=== PATIENT | female | born 1940 | race Two or more races ===

== ENCOUNTER 2020-04-17 00:25 | Inpatient (IN) | payer MEDICARE, OTHER ==
[~2020-04-17] VITALS: Ht 160 cm; Wt 55.3 kg
--- NOTE | 2020-04-17 00:50 | NUR ---
PT BIB 878 FROM HOME FOR C/O GEN ABD PAIN, EPIGASTRIC PAIN AND N/V X 3-4 HRS. PT AAOX4, VSS, RESPIRATIONS EVEN AND UNLABORED ON RA W/ NAD NOTED. PT CONNECTED TO THE CARTON STAPLER AND POX
[2020-04-17] MEDS ORDERED: HYDROMORPHONE INJ 2 MG/ML DISP.SYRIN IV ONE (01:30)
[2020-04-17] MEDS ORDERED: ONDANSETRON HCL/PF 4 MG/2 ML VIAL IVP ONE (01:30)
[2020-04-17] MEDS ORDERED: IV NS 0.9% 500 ML BAG IV ONE (01:30)
[2020-04-17] MEDS ORDERED: HYDROMORPHONE 1 MG/1 ML DISP.SYRIN ONE (01:33)
[2020-04-17] MEDS ORDERED: ONDANSETRON HCL/PF 4 MG/2 ML VIAL ONE (01:33)
--- NOTE | 2020-04-17 02:05 | NUR ---
PT TAKEN TO RADIOLOGY FOR CT
[2020-04-17 02:09] LABS: BASOPHILS % (AUTO) 0.2 % (0.0-2.0); EOSINOPHILS % (AUTO) 2.9 % (0.0-6.0); HEMATOCRIT 43 % (33-45); HEMOGLOBIN 14.5 g/dL (11.5-14.8); LYMPHOCYTES # (AUTO) 1.6 /CMM (0.8-4.8); LYMPHOCYTES % (AUTO) 18.3 % (20.0-44.0); MEAN CORPUSCULAR HGB CONC 34 g/dl (31.0-36.0); MEAN CORPUSCULAR VOLUME 91 fL (82-100); MONOCYTES # (AUTO) 0.7 /CMM (0.1-1.30); MONOCYTES % (AUTO) 7.9 % (2.0-12.0); NEUTROPHILS # (AUTO) 6.1 /CMM (1.8-8.9); NEUTROPHILS % (AUTO) 70.7 % (43.0-81.0); PLATELET COUNT (AUTO) 178 /CMM (150-450); RED BLOOD CELL COUNT(AUTO) 4.73 MIL/uL (4.0-5.2); WHITE BLOOD COUNT (AUTO) 8.7 K/uL (4.3-11.0)
[2020-04-17 02:22] LABS: ALANINE AMINOTRANSFERASE 29 U/L (12-78); ALBUMIN 3.5 g/dL (3.4-5.0); ALKALINE PHOSPHATASE 100 U/L (46-116); ASPARTATE AMINOTRANSFERASE 208 U/L (15-37); BILIRUBIN,DIRECT 0.4 mg/dL (0.0-0.2); BILIRUBIN,TOTAL 0.8 mg/dL (0.2-1.0); CALCIUM, SERUM 8.5 mg/dL (8.5-10.1); CARBON DIOXIDE 30 mmol/L (21-32); CHLORIDE 103 mmol/L (98-107); CREATININE 0.7 mg/dL (0.6-1.3); GLUCOSE 145 mg/dL (74-106); LIPASE 1076 U/L (73-393); POTASSIUM 3.8 mmol/L (3.5-5.1); SODIUM SERUM 141 mmol/L (136-145); TOTAL PROTEIN, SERUM 6.7 g/dL (6.4-8.2); UREA NITROGEN, BLOOD 17 mg/dL (7-18)
--- NOTE | 2020-04-17 02:30 | NUR ---
PT BACK FROM RADIOLOGY
[2020-04-17] MEDS ORDERED: methylPREDNISolone SOD SUCC 125 MG/2ML VIAL ONE (02:58)
[2020-04-17] MEDS ORDERED: diphenhydrAMINE HCL 50 MG/ML VIAL ONE (02:58)
[2020-04-17] MEDS ORDERED: FAMOTIDINE/PF INJ 20 MG/2 ML VIAL IV ONE ×2 (02:59→03:00)
[2020-04-17] MEDS ORDERED: diphenhydrAMINE HCL 50 MG/ML VIAL IV ONE (03:00)
[2020-04-17] MEDS ORDERED: methylPREDNISolone SOD SUCC 125 MG/2ML VIAL IV ONE (03:00)
--- NOTE | 2020-04-17 03:51 | NUR ---
WAS NOTIFIED PT WILL BE GOING TO 327-2 BY NURSING SPECIAL MAKEUP FX ARTIST INSTRUCTOR.
--- NOTE | 2020-04-17 04:07 | NUR ---
REPORT GIVEN TO AVI ON THIRD FLOOR
--- NOTE | 2020-04-17 04:11 | NUR ---
PT TRANSFERRED TO ROOM W/ EMT
--- NOTE | 2020-04-17 04:13 | NUR ---
PT DOES NOT RECALL THE LIST OF HER HOME MEDS
--- NOTE | 2020-04-17 05:03 | NUR ---
MS/TELE/RN RECEIVED PATIENT AT AROUND 0425 FROM [facility] PATIENT WAS AWAKE ALERT, ORIENTED X 4 BUT FORGETFUL, NO C/O PAIN, NO SIGNS OF DISTRESS NOTED, MADE COMFORTABLE IN BED, ADMISSION DONE PER PROTOCOL, PHYSICAL ASSESSMENT DONE, PATIENT CONSENTED TO TAKING PHOTOS ON GENERALIZED BODY RASHES, FALL PRECAUTIONS PER PROTOCOL IMPLEMENTED FOR SAFETY, TAUGHT THE USE OF CALL LIGHT, VERBALIZED UNDERSTANDING, AND PLACED IT AT BEDSIDE WITHIN REACH. NOTIFIED DR. CARSON OF ADMISSION. WILL MONITOR.
[2020-04-17] MEDS ORDERED: MORPHINE SULFATE INJ 2 MG/ML DISP.SYRIN IV PRN (05:30)
[2020-04-17] MEDS ORDERED: MAGNESIUM HYDROXIDE 30 ML UDC PO PRN (05:30)
[2020-04-17] MEDS ORDERED: MAG HYDROX/AL HYDROX/SIMETH 30 ML UDC PO PRN (05:30)
[2020-04-17] MEDS ORDERED: ZOLPIDEM TARTRATE 5 MG TABLET PO PRN (05:30)
[2020-04-17] MEDS ORDERED: Z GUARD REMEDY 2 OZ OINT TP PRN (05:30)
[2020-04-17] MEDS ORDERED: ACETAMINOPHEN 325 MG TABLET PO PRN (05:30)
[2020-04-17] MEDS ORDERED: HYDROCODONE/APAP 5/325MG TABLET PO PRN (05:30)
[2020-04-17] MEDS ORDERED: ONDANSETRON HCL/PF 4 MG/2 ML VIAL IVP PRN (05:30)
[2020-04-17] MEDS: IV D5/0.45 NACL 1,000 ML IV PRN ×2 (05:47→16:08)
--- NOTE | 2020-04-17 06:52 | NUR ---
MS/TELE/RN PATIENT IS AWAKE, ALERT, ORIENTED, COMFORTABLE, NO CHANGE IN CONDITION, ALL NEEDS ATTENDED AT THIS TIME, WILL CONTINUE TO MONITOR.
--- NOTE | 2020-04-17 07:26 | NUR ---
MS RN OPENING NOTES RECEIVED PATIENT AWAKE IN BED IN NO ACUTE SIGNS OF DISTRESS. A/O X3. ABLE TO MAKE NEEDS KNOWN, DENIES PAIN OR ANY DISCOMFORTS AT THIS TIME. PT IS FORGETFUL. ON 02 VIA N/C @ 2LPM, BREATHING EVEN AND UNLABORED. IV ACCESS ON RIGHT WRIST G#20 INTACT AND PATENT WITH IVF OF D5 1/2 NS @125 ML/HR INFUSING WELL. SAFETY MEASURES IN PLACE: BED IN LOW/LOCKED POSITION, SIDE-RAILS UPX2, BED ALARM ON AND CALL LIGHT IN REACH. WILL CONTINUE TO MONITOR PT ACCORDINGLY
[2020-04-17 08:00] VITALS: BP 127/93
[2020-04-17] MEDS ORDERED: MEMA7CAP2 PO (08:51)
[2020-04-17] MEDS ORDERED: HYDR-3642 PO (08:51)
[2020-04-17] MEDS ORDERED: CARB1TAB21 PO (08:51)
[2020-04-17] MEDS ORDERED: FLUT1BLS INH (08:51)
[2020-04-17] MEDS ORDERED: CETI10TA14 PO (08:51)
[2020-04-17] MEDS ORDERED: ALBU18HF2 IH (08:51)
[2020-04-17] MEDS ORDERED: NITR1PAT67 TD (08:53)
[2020-04-17] MEDS: PANTOPRAZOLE 40 MG VIAL IV SCH (09:00)
[2020-04-17] MEDS ORDERED: ALBUTEROL SULFATE INH 18 GM HFA.AER.AD IH PRN (11:30)
[2020-04-17] MEDS ORDERED: cetrizine 10 MG TABLET PO PRN (11:30)
--- NOTE | 2020-04-17 11:57 | NUR ---
RN NOTES PT SEEN AND EVALUATED BY DR RAMSEY. MED RECON VERIFIED AND ORDERED PT TO START ON CLEAR LIQUIDS DIET. WILL CONTINUE TO MONITOR.
[2020-04-17] MEDS ORDERED: ALBUTEROL FS 2.5 MG/3 ML VIAL.NEB NEB PRN (12:00)
[2020-04-17] MEDS: CARBIDOPA/LEVODOPA 25/100 MG 1 UDTAB PO SCH ×2 (12:16→16:20)
[2020-04-17] MEDS: DOCUSATE SODIUM 100 MG CAPSULE PO SCH ×2 (13:02→16:20)
[2020-04-17 16:00] VITALS: BP 144/93
[2020-04-17] MEDS: MEMANTINE HCL 5 MG TABLET PO SCH (16:20)
--- NOTE | 2020-04-17 18:43 | NUR ---
MS RN CLOSING NOTES PATIENT IN BED AWAKE AND WATCHING TV AT THIS TIME. HOB KEPT ELEVATED. A/O X3. ABLE TO MAKE NEEDS KNOWN, FORGETFUL. ON 02 VIA N/C @ 2LPM, TOLERATING WELL WITH NO SOB NOTED THROUGHOUT THE DAY. IV ACCESS ON RIGHT WRIST G#20 INTACT AND PATENT, IVF OF D5 1/2 NS @125 ML/HR INFUSING WELL, NO S/S OF INFILTRATIONS AT SITE NOTED. ALL NEEDS AND CARE ATTENDED WELL. SAFETY MEASURES KEPT IN PLACE: BED IN LOWEST LOCKED POSITION, SIDE-RAILS UPX2, BED ALARM ON AND CALL LIGHT IN REACH. WILL ENDORSE TO SENIOR LINUX SYSTEMS ENGINEER NURSE FOR JAY.
--- NOTE | 2020-04-17 19:40 | NUR ---
RN OPENING NOTES PATIENT RECEIVED RESTING IN BED A/O X 3. STABLE ON RA WITH BREATHING EVEN AND UNLABORED, NO SOB NOTED. NO SIGNS OF ACUTE DISTRESS. NO COMPLAINTS OF PAIN OR DISCOMFORT AT THE MOMENE.T IV LOCATED ON R WRIST #20 RUNNING D51/2 NS @ 75 ML/HR. SAFETY PRECAUTIONS IN PLACE WITH BED IN LOWEST POSITION, CALL LIGHT WITHIN REACH, BREAKS ON, SIDE RAILS UP. WILL CONTINUE TO MONITOR THROUGHOUT THE NIGHT.
[2020-04-17 20:32] VITALS: BP 119/71
[2020-04-17] MEDS ORDERED: hydrOXYzine 10 MG TABLET PO SCH (22:00)
--- NOTE | 2020-04-17 23:35 | NUR ---
RN NOTES PATIENT NOT ABLE TO INTAKE SWEETS- GETS RASHES ALL OVER BODY. NOTIFIED BY DAUGHTER AND PATIENT.
--- NOTE | 2020-04-18 01:40 | NUR ---
RN NOTES PATIENT COMPLAINING OF SOB. O2SAT AT 94%. RT AT BEDSIDE GIVING BREATHING TREATMENT PRN. WILL CONTINUE TO MONITOR.
[2020-04-18 06:15] LABS: BASOPHILS % (AUTO) 0.2 % (0.0-2.0); EOSINOPHILS % (AUTO) 3.1 % (0.0-6.0); HEMATOCRIT 39 % (33-45); HEMOGLOBIN 13.5 g/dL (11.5-14.8); LYMPHOCYTES # (AUTO) 1.6 /CMM (0.8-4.8); LYMPHOCYTES % (AUTO) 21.1 % (20.0-44.0); MEAN CORPUSCULAR HGB CONC 34 g/dl (31.0-36.0); MEAN CORPUSCULAR VOLUME 90 fL (82-100); MONOCYTES # (AUTO) 0.5 /CMM (0.1-1.30); NEUTROPHILS # (AUTO) 5.4 /CMM (1.8-8.9); NEUTROPHILS % (AUTO) 68.6 % (43.0-81.0); PLATELET COUNT (AUTO) 154 /CMM (150-450); RED BLOOD CELL COUNT(AUTO) 4.36 MIL/uL (4.0-5.2); WHITE BLOOD COUNT (AUTO) 7.8 K/uL (4.3-11.0)
[2020-04-18 06:45] LABS: ALBUMIN 3.1 g/dL (3.4-5.0); BILIRUBIN,TOTAL 0.5 mg/dL (0.2-1.0); CALCIUM, SERUM 7.2 mg/dL (8.5-10.1); CREATININE 0.7 mg/dL (0.6-1.3); PHOSPHORUS 2.9 mg/dL (2.5-4.9); POTASSIUM 3.5 mmol/L (3.5-5.1); TOTAL PROTEIN, SERUM 5.9 g/dL (6.4-8.2)
--- NOTE | 2020-04-18 07:31 | NUR ---
MS RN OPENING NOTES BEDSIDE ENDORESEMENT DONE. RECEIVED PATIENT SITTING IN BED, AWAKE AND VERBALLY RESPONSIVE, NO ACUTE DISTRESS. A/O X3 BUT MAY NEED REORIENTATION AND REDIRECTION. ABLE TO MAKE NEEDS KNOWN. SHE DENIES PAIN NOR DISCOMFORT AT THIS TIME. ON 02 VIA N/C @ 2LPM, SATURATING AT 97%, BREATHING EVEN AND UNLABORED. IV ACCESS ON RIGHT WRIST G#20 INTACT AND PATENT, WITH IVF OF D5 1/2 NS @125 ML/HR INFUSING WELL. SAFETY MEASURES PLACED: BED IN LOW/LOCKED POSITION, SIDE-RAILS UP X2, BED ALARM ON AND CALL LIGHT IN REACH. INSTRUCTION PROVIDED TO PATIENT TO USE CALL LIGHT BUTTON FOR STAFF ASSISTANCE W/ ADLs. WILL MONITOR ACCORDINGLY.
--- NOTE | 2020-04-18 07:33 | NUR ---
RN CLOSING NOTES PATIENT RESTING IN BED A/O X 3. STABLE ON RA WITH BREATHING EVEN AND UNLABORED, NO SOB NOTED. NO SIGNS OF ACUTE DISTRESS. NO COMPLAINTS OF PAIN OR DISCOMFORT AT THE MOMENT. IV LOCATED ON R WRIST PATIENT DOES NOT WANT IVF AT THE MOMENT. SAFETY PRECAUTIONS IN PLACE WITH BED IN LOWEST POSITION, CALL LIGHT WITHIN REACH, BREAKS ON, SIDE RAILS UP. ALL NEEDS ATTENDED TO. WILL ENDORSE TO ONCOMING SHIFT ABOUT JAY.
[2020-04-18 07:43] LABS: THYROID STIMULATING HORMONE 1.282 uIU/mL (0.358-3.74)
[2020-04-18 08:00] VITALS: BP 122/93
[2020-04-18] MEDS: MEMANTINE HCL 5 MG TABLET PO SCH ×2 (08:24→16:05)
[2020-04-18] MEDS: PANTOPRAZOLE 40 MG VIAL IV SCH (08:24)
[2020-04-18] MEDS: DOCUSATE SODIUM 100 MG CAPSULE PO SCH ×3 (08:24→16:05)
[2020-04-18] MEDS: CARBIDOPA/LEVODOPA 25/100 MG 1 UDTAB PO SCH ×3 (08:24→16:06)
[2020-04-18] MEDS ORDERED: FLUTICASONE/VILANTEROL 1 EACH BLST.W.DEV IH SCH (09:00)
--- NOTE | 2020-04-18 11:26 | NUR ---
RN NOTES PT SEEN BY DR RAMSEY WITH ORDER TO ADVANCE DIET TO REGULAR NCS FOR LUNCH FROM CLEAR LIQUIDS DIET. WILL CONTINUE TO MONITOR.
[2020-04-18] MEDS: IV D5/0.45 NACL 1,000 ML IV PRN (15:07)
[2020-04-18 16:00] VITALS: BP 126/80
[2020-04-18] MEDS ORDERED: PANT40TA2 PO (16:06)
--- NOTE | 2020-04-18 16:54 | NUR ---
RN DISCHARGED NOTES PT DISCHARGED HOME IN STABLE CONDITION. A/O X2-3. FORGETFUL BUT ABLE TO MAKE NEEDS KNOWN. V/S TAKEN, STABLE AND RECORDED. ALL BELONGINGS ACCOUNTED FOR AND PT SIGNED FORM. PHOTOS OF SKIN ISSUES TAKEN AND FILED IN HER CHART. IV ACCESS REMOVED WITH NO BLEEDING NOTED. NAME ARMBAND REMOVED. PT LEFT UNIT AMBULATORY AT 1645 ACCOMPANIED BY ME. PT'S WAITING IN THE [facility] AND HEALTH TEACHINGS/DISCHARGED INSTRUCTIONS WAS GIVEN TO HIM AND PT, BOTH VERBALIZED UNDERSTANDING. [employer] BUSINESS CARD OF ALTHEA GREENE HANDED TO PT'S . MD AND CHARGE NURSE AWARE OF DISCHARGE.
== END 2020-04-18 16:40 | disposition home or self-care (01) | DRG 440 ==
LOC: ER 00:26 → MED 03:51
PROVIDERS: ADMIT Nurse Practitioner Acute Care; ATTEND Nurse Practitioner Acute Care
DX: K85.90 Acute pancreatitis without necrosis or infection, unspecified (principal); K52.9 Noninfective gastroenteritis and colitis, unspecified; K59.00 Constipation, unspecified; K20.9 Esophagitis, unspecified; G30.9 Alzheimer's disease, unspecified; F02.80 Dementia in other diseases classified elsewhere, unspecified severity, without behavioral disturbance, psychotic disturbance, mood disturbance, and anxiety; K86.1 Other chronic pancreatitis; R21 Rash and other nonspecific skin eruption; J45.909 Unspecified asthma, uncomplicated
CPT/HCPCS: 36415; 71045-TC; 80048-TC; 80053-TC; 80061-TC; 80076-TC; 83690-TC; 83735-TC; 84100-TC; 84443-TC; 84484-TC; 85025-TC; 85730-TC; 87081-TC; C9113; C9803-CS; G0378; J1170; J1200; J2405; J2930; J3490; J7040; Q0177

== ENCOUNTER 2020-04-20 08:01 | Emergency (ER) | payer MEDICARE, OTHER ==
[~2020-04-20] VITALS: Ht 160 cm; Wt 57.6 kg
[~2020-04-20 08:01] MED LIST: ALBU18HF2 IH; CARB1TAB21 PO; CETI10TA14 PO; FLUT1BLS INH; HYDR-3642 PO; MEMA7CAP2 PO; NITR1PAT67 TD; PANT40TA2 PO
--- NOTE | 2020-04-20 08:04 | NUR ---
DR PICKARD AT BEDSIDE
--- NOTE | 2020-04-20 08:04 | NUR ---
[id number] HOME, FAMILY CALLED PT C/O EPIGASTRIC AREA PAIN SINCE THIS AM. TO ER BED 10, HOOKED TO MONITOR, CHANGED TO HOSP GOWN, WARM BLABKET PROVIDED, PATIENT AAO x 3, BREATHING EVEN AND UNLABORED. AWAITING MD HERNANDEZ
--- NOTE | 2020-04-20 08:10 | NUR ---
DISC RECORDIST AT BEDSIDE
[2020-04-20] MEDS ORDERED: LIDOCAINE VISCOUS 2% UD 15 ML UDC MM ONE (08:30)
[2020-04-20] MEDS ORDERED: ONDANSETRON HCL/PF 4 MG/2 ML VIAL IVP ONE (08:30)
[2020-04-20] MEDS ORDERED: MAG HYDROX/AL HYDROX/SIMETH 30 ML UDC PO ONE (08:30)
[2020-04-20] MEDS ORDERED: FAMOTIDINE/PF INJ 20 MG/2 ML VIAL IV ONE ×2 (08:30→08:48)
[2020-04-20] MEDS ORDERED: IV NS 0.9% 500 ML BAG IV ONE (08:30)
[2020-04-20 08:39] LABS: BASOPHILS % (AUTO) 0.4 % (0.0-2.0); EOSINOPHILS % (AUTO) 11.4 % (0.0-6.0); HEMATOCRIT 40 % (33-45); HEMOGLOBIN 13.7 g/dL (11.5-14.8); LYMPHOCYTES # (AUTO) 1.6 /CMM (0.8-4.8); LYMPHOCYTES % (AUTO) 28.8 % (20.0-44.0); MEAN CORPUSCULAR HGB CONC 34 g/dl (31.0-36.0); MEAN CORPUSCULAR VOLUME 90 fL (82-100); MONOCYTES # (AUTO) 0.4 /CMM (0.1-1.30); MONOCYTES % (AUTO) 8.1 % (2.0-12.0); NEUTROPHILS # (AUTO) 2.8 /CMM (1.8-8.9); NEUTROPHILS % (AUTO) 51.3 % (43.0-81.0); PLATELET COUNT (AUTO) 164 /CMM (150-450); RED BLOOD CELL COUNT(AUTO) 4.47 MIL/uL (4.0-5.2); WHITE BLOOD COUNT (AUTO) 5.5 K/uL (4.3-11.0)
[2020-04-20] MEDS ORDERED: ONDANSETRON HCL/PF 4 MG/2 ML VIAL ONE (08:47)
[2020-04-20] MEDS ORDERED: MAG HYDROX/AL HYDROX/SIMETH 30 ML UDC ONE (08:47)
[2020-04-20] MEDS ORDERED: LIDOCAINE VISCOUS 2% UD 15 ML UDC ONE (08:47)
[2020-04-20 08:49] LABS: CALCIUM, SERUM 8.3 mg/dL (8.5-10.1); CREATININE 0.6 mg/dL (0.6-1.3); POTASSIUM 3.6 mmol/L (3.5-5.1)
[2020-04-20 08:56] LABS: ALBUMIN 3.5 g/dL (3.4-5.0); BILIRUBIN,DIRECT 0.1 mg/dL (0.0-0.2); BILIRUBIN,TOTAL 0.6 mg/dL (0.2-1.0); TOTAL PROTEIN, SERUM 6.5 g/dL (6.4-8.2)
--- NOTE | 2020-04-20 08:58 | NUR ---
URINE SAMPLE COLLECTED AND SENT TO LAB
--- NOTE | 2020-04-20 10:49 | NUR ---
IV removed. Catheter intact and site benign. Pressure and 4x4 applied to site. No bleeding noted.
--- NOTE | 2020-04-20 11:01 | NUR ---
PATIENT AWAITING FAMILY TO PICK HER UP. NO ETA PROVIDED.
--- NOTE | 2020-04-20 11:03 | NUR ---
PER DAUGHTER, ETA OF [facility] ABOUT 15-20MIN
[2020-04-20 11:09] LABS: APPEARANCE,URINE Clear (CLEAR); BILIRUBIN,URINE Negative (NEGATIVE); BLOOD, URINE Negative Ery/uL (NEGATIVE); COLOR,URINE Yellow (YELLOW); KETONES,URINE Negative (NEGATIVE); LEUKOCYTE ESTERASE ,URINE Negative (NEGATIVE); NITRITE, URINE Negative (NEGATIVE); PH,URINE 7.5 (5.0-8.0); PROTEIN,URINE Negative (NEGATIVE); UGLUCOSE Negative (NEGATIVE); UROBILINOGEN,URINE 0.2 EU/dL (0.2)
--- NOTE | 2020-04-20 11:14 | NUR ---
Patient discharged to home with in stable condition. Written and verbal after care instructions given. Patient and family verbalizes understanding of instruction. Assisted to waiting room where is waiting.
[2020-04-20 11:16] VITALS: BP 146/87
== END 2020-04-20 11:16 | disposition home or self-care (01) ==
LOC: ER 08:03
DX: R10.13 Epigastric pain (principal); R10.12 Left upper quadrant pain; R11.0 Nausea; G30.9 Alzheimer's disease, unspecified; G20 Parkinson's disease; Z90.49 Acquired absence of other specified parts of digestive tract; Z88.6 Allergy status to analgesic agent; Z79.899 Other long term (current) drug therapy
CPT/HCPCS: 36415; 71045; 80048; 80076; 81001; 83690; 85025; 93005; 96374; 96375; 99285; J2405; J3490; J7040; 81000-TC

== ENCOUNTER 2020-05-28 10:13 | Emergency (ER) | payer MEDICARE, OTHER ==
[~2020-05-28] VITALS: Ht 160 cm; Wt 51.7 kg
--- NOTE | 2020-05-28 10:20 | NUR ---
pt BIB daughter from home. s/p fall. noted with right eyebrow open wound. wound care provided. all needs attended. awaiting for MD baumann
--- NOTE | 2020-05-28 10:25 | NUR ---
MD at bedside and evaluating pt
[2020-05-28] MEDS ORDERED: LIDOCAINE HCL/PF 1% 30 ML VIAL TP ONE (10:30)
[2020-05-28] MEDS ORDERED: ACETAMINOPHEN ES 500 MG TABLET PO ONE (10:30)
[2020-05-28] MEDS ORDERED: LIDOCAINE /MPF 1% VIAL 5 ML VIAL ONE (10:34)
[2020-05-28] MEDS ORDERED: ACETAMINOPHEN ES 500 MG TABLET ONE (10:34)
--- NOTE | 2020-05-28 10:47 | NUR ---
pt out for CT
--- NOTE | 2020-05-28 11:43 | NUR ---
AT BEDSIDE. SUTURE ONGOING
[2020-05-28] MEDS ORDERED: TDAP [DIPH/PERTUSSIS/TET] 0.5 ML VIAL IM ONE ×2 (12:11→12:30)
[2020-05-28 12:54] VITALS: BP 104/87
== END 2020-05-28 12:55 | disposition home or self-care (01) ==
LOC: ER 10:17
DX: S01.111A Laceration without foreign body of right eyelid and periocular area, initial encounter (principal); S80.211A Abrasion, right knee, initial encounter; G30.9 Alzheimer's disease, unspecified; G20 Parkinson's disease; F02.80 Dementia in other diseases classified elsewhere, unspecified severity, without behavioral disturbance, psychotic disturbance, mood disturbance, and anxiety; J45.909 Unspecified asthma, uncomplicated; Z90.49 Acquired absence of other specified parts of digestive tract; Z88.6 Allergy status to analgesic agent; Z98.890 Other specified postprocedural states; W01.0XXA Fall on same level from slipping, tripping and stumbling without subsequent striking against object, initial encounter; Y93.01 Activity, walking, marching and hiking; Y92.89 Other specified places as the place of occurrence of the external cause; Y99.8 Other external cause status
CPT/HCPCS: 12011; 70450; 72125; 90471; 90715; 99285; A6403; J3490 ×2

== ENCOUNTER 2020-06-04 10:53 | Emergency (ER) | payer MEDICARE, OTHER ==
[~2020-06-04] VITALS: Ht 160 cm; Wt 54.4 kg
[2020-06-04 11:05] VITALS: BP 106/71
--- NOTE | 2020-06-04 11:17 | NUR ---
3 SUTURES TAKEN OUT. TOLERATED PROCEDURE WELL. D/C IN STABLE CONDITION.
== END 2020-06-04 11:18 | disposition home or self-care (01) ==
LOC: ER 11:01
DX: S01.81XD Laceration without foreign body of other part of head, subsequent encounter (principal); G30.9 Alzheimer's disease, unspecified; G20 Parkinson's disease; F02.80 Dementia in other diseases classified elsewhere, unspecified severity, without behavioral disturbance, psychotic disturbance, mood disturbance, and anxiety; J45.909 Unspecified asthma, uncomplicated; Z90.49 Acquired absence of other specified parts of digestive tract; Z88.6 Allergy status to analgesic agent; Z79.899 Other long term (current) drug therapy; X58.XXXD Exposure to other specified factors, subsequent encounter

== ENCOUNTER 2020-09-13 06:15 | Inpatient (IN) | payer MEDICARE, OTHER ==
[~2020-09-13] VITALS: Ht 160 cm; Wt 53.7 kg
--- NOTE | 2020-09-13 06:20 | NUR ---
PT BIBRA FROM HOME C/O EPIGASTRIC PAIN X 3 DAYS. PT DENIES N/V. PT AAOX4, VSS, RESPIRATIONS EVEN AND UNLABORED ON RA W/ NAD NOTED. PT CONNECTED TO THE MONITOR AND POX
[2020-09-13] MEDS ORDERED: LIDOCAINE VISCOUS 2% UD 15 ML UDC ONE (06:29)
[2020-09-13] MEDS ORDERED: FAMOTIDINE/PF INJ 20 MG/2 ML VIAL IV ONE ×2 (06:29→06:30)
[2020-09-13] MEDS ORDERED: MAG HYDROX/AL HYDROX/SIMETH 30 ML UDC ONE (06:29)
[2020-09-13] MEDS ORDERED: IV NS 0.9% 500 ML BAG IV ONE (06:30)
[2020-09-13] MEDS ORDERED: MAG HYDROX/AL HYDROX/SIMETH 30 ML UDC PO ONE (06:30)
[2020-09-13] MEDS ORDERED: LIDOCAINE VISCOUS 2% UD 15 ML UDC MM ONE (06:30)
--- NOTE | 2020-09-13 06:48 | NUR ---
BLOOD COLLECTED AND SENT TO LAB
--- NOTE | 2020-09-13 06:57 | NUR ---
PT UNABLE TO PROVIDE URINE SAMPLE AT THIS TIME. MD JOSEPH
[2020-09-13 07:08] LABS: BASOPHILS % (AUTO) 0.3 % (0.0-2.0); EOSINOPHILS % (AUTO) 11.1 % (0.0-6.0); HEMATOCRIT 37 % (33-45); HEMOGLOBIN 12.6 g/dL (11.5-14.8); LYMPHOCYTES # (AUTO) 1.5 /CMM (0.8-4.8); LYMPHOCYTES % (AUTO) 32.4 % (20.0-44.0); MEAN CORPUSCULAR HGB CONC 34 g/dl (31.0-36.0); MEAN CORPUSCULAR VOLUME 87 fL (82-100); MONOCYTES # (AUTO) 0.4 /CMM (0.1-1.30); NEUTROPHILS # (AUTO) 2.3 /CMM (1.8-8.9); NEUTROPHILS % (AUTO) 48.2 % (43.0-81.0); PLATELET COUNT (AUTO) 128 /CMM (150-450); RED BLOOD CELL COUNT(AUTO) 4.27 MIL/uL (4.0-5.2); WHITE BLOOD COUNT (AUTO) 4.8 K/uL (4.3-11.0)
--- NOTE | 2020-09-13 07:10 | NUR ---
REPORT GIVEN TO TIANNA HARDWICK FOR JAY
[2020-09-13 07:30] LABS: ALANINE AMINOTRANSFERASE 34 U/L (12-78); ALBUMIN 2.9 g/dL (3.4-5.0); ALKALINE PHOSPHATASE 67 U/L (46-116); ASPARTATE AMINOTRANSFERASE 70 U/L (15-37); BILIRUBIN,DIRECT 0.2 mg/dL (0.0-0.2); BILIRUBIN,TOTAL 0.6 mg/dL (0.2-1.0); CALCIUM, SERUM 8.2 mg/dL (8.5-10.1); CARBON DIOXIDE 28 mmol/L (21-32); CHLORIDE 106 mmol/L (98-107); CREATININE 0.5 mg/dL (0.6-1.3); GLUCOSE 100 mg/dL (74-106); LIPASE 1006 U/L (73-393); POTASSIUM 3.7 mmol/L (3.5-5.1); SODIUM SERUM 142 mmol/L (136-145); TOTAL PROTEIN, SERUM 5.8 g/dL (6.4-8.2); UREA NITROGEN, BLOOD 21 mg/dL (7-18)
[2020-09-13] MEDS ORDERED: ONDANSETRON HCL/PF 4 MG/2 ML VIAL IVP ONE (08:00)
[2020-09-13] MEDS ORDERED: MORPHINE SULFATE INJ 2 MG/ML DISP.SYRIN IV ONE (08:00)
[2020-09-13] MEDS ORDERED: MORPHINE SULFATE INJ 4 MG/ML DISP.SYRIN ONE (08:02)
[2020-09-13] MEDS ORDERED: ONDANSETRON HCL/PF 4 MG/2 ML VIAL ONE (08:02)
--- NOTE | 2020-09-13 08:58 | NUR ---
COVID SWAB SENT.
[2020-09-13] MEDS ORDERED: PRIM50TA27 PO (09:10)
[2020-09-13] MEDS ORDERED: ATOR10TA PO (09:10)
[2020-09-13] MEDS ORDERED: diphenhydrAMINE HCL 50 MG/ML VIAL ONE (09:34)
--- NOTE | 2020-09-13 09:37 | NUR ---
MD TO MD IN PROGRESS.
[2020-09-13] MEDS ORDERED: diphenhydrAMINE HCL 50 MG/ML VIAL IV ONE (10:00)
--- NOTE | 2020-09-13 10:12 | NUR ---
CALLED NURSING SUP FOR BED.
[2020-09-13] MEDS ORDERED: MORPHINE SULFATE INJ 2 MG/ML DISP.SYRIN IV PRN (10:30)
[2020-09-13] MEDS ORDERED: MAGNESIUM HYDROXIDE 30 ML UDC PO PRN (10:30)
[2020-09-13] MEDS ORDERED: MAG HYDROX/AL HYDROX/SIMETH 30 ML UDC PO PRN (10:30)
[2020-09-13] MEDS ORDERED: ACETAMINOPHEN 325 MG TABLET PO PRN (10:30)
[2020-09-13] MEDS ORDERED: PANTOPRAZOLE 40 MG VIAL IV SCH (10:30)
[2020-09-13] MEDS ORDERED: IV NS 0.9% 1,000 ML IV PRN (10:30)
[2020-09-13] MEDS ORDERED: Z GUARD REMEDY 2 OZ OINT TP PRN (10:30)
[2020-09-13] MEDS ORDERED: TEMAZEPAM 15 MG CAPSULE PO PRN (10:30)
[2020-09-13] MEDS ORDERED: ONDANSETRON HCL/PF 4 MG/2 ML VIAL IVP PRN (10:30)
--- NOTE | 2020-09-13 11:10 | NUR ---
BED 328-1
[2020-09-13 12:15] VITALS: BP 119/79
--- NOTE | 2020-09-13 12:16 | NUR ---
PATIENT TRANSFERRED TOR OOM 328-1 VIA ACLS PROTOCOL. NO DSITRESS NOTED. GAVE REPORT TO LUIS ENRIQUE WYNN FOR JAY.
[2020-09-13] MEDS: PANTOPRAZOLE 40 MG TABLET.DR PO SCH (12:23)
--- NOTE | 2020-09-13 13:30 | NUR ---
RN ADMITTING NOTES RECEIVED REPORT FROM April HARDWICK VIA TELEPHONE. PATIENT ADMITTED TO UNIT VIA GURNEY AT 1210 ACCOMPANIED BY 2 E.R. TRANSPORTER STAFF. PT IS A/O X3. ABLE TO MAKE NEEDS KNOWN, DENIES PAIN OR ANY DISCOMFORTS AT TIME. ORIENTED TO STAFF AND ROOM. PT WITH ADMITTING DX OF ACUTE PANCREATITIS. ON ROOM AIR, BREATHING EVEN AND UNLABORED WITH NO SOB NOTED. SKIN IS INTACT AND NOTED WITH IV ACCESS ON RIGHT HAND G#20, IVF OF NS @ 75ML/HR STARTED. SAFETY MEASURES INITIATED: BED IS LOCKED AND IN LOWEST POSITION, SIDE RAILS UP X 2, BED ALARM ON AND CALL LIGHT IS WITHIN REACH. WILL CONTINUE TO MONITOR PT ACCORDINGLY..
[2020-09-13] MEDS ORDERED: hydrOXYzine 10 MG TABLET PO PRN (15:30)
[2020-09-13] MEDS ORDERED: ALBUTEROL SULFATE INH 18 GM HFA.AER.AD IH PRN (15:30)
[2020-09-13] MEDS: CARBIDOPA/LEVODOPA 25/100 MG 1 UDTAB PO SCH (16:46)
[2020-09-13] MEDS ORDERED: FLUTICASONE/VILANTEROL 1 EACH BLST.W.DEV IH SCH (17:00)
--- NOTE | 2020-09-13 17:34 | NUR ---
RN NOTES PT VOMITED UNDIGESTED JELLO, PRN ZOFRAN 4MG/2ML IVP ADMINISTERED AT 1731. WILL CONTINUE TO MONITOR AND REASSESS PT.
--- NOTE | 2020-09-13 18:44 | NUR ---
MS RN CLOSING NOTES PT IN BED AWAKE AND WATCHING TV AT THIS TIME. A/O X3. ABLE TO MAKE NEEDS KNOWN. ON ROOM AIR, TOLERATING WELL WITH NO SOB NOTED. IV ACCESS ON RIGHT HAND G#20 INTACT WITH IVF OF NS @ 75ML/HR INFUSING WELL. ALL NEEDS AND CARE ATTENDED WELL. SAFETY MEASURES MAINTAINED: BED IS LOCKED AND IN LOWEST POSITION, SIDE RAILS UP X 2, BED ALARM ON AND CALL LIGHT IS WITHIN REACH. WILL ENDORSE TO CAMP DIRECTOR NURSE FOR JAY.
[2020-09-13 21:35] VITALS: BP 151/91
[2020-09-13] MEDS ORDERED: ATORVASTATIN 10 MG TABLET PO SCH (22:00)
[2020-09-14 06:43] LABS: BASOPHILS % (AUTO) 0.2 % (0.0-2.0); EOSINOPHILS % (AUTO) 3.9 % (0.0-6.0); HEMATOCRIT 41 % (33-45); LYMPHOCYTES # (AUTO) 1.3 /CMM (0.8-4.8); LYMPHOCYTES % (AUTO) 24.3 % (20.0-44.0); MEAN CORPUSCULAR HGB CONC 34 g/dl (31.0-36.0); MEAN CORPUSCULAR VOLUME 88 fL (82-100); MONOCYTES # (AUTO) 0.4 /CMM (0.1-1.30); MONOCYTES % (AUTO) 6.9 % (2.0-12.0); NEUTROPHILS # (AUTO) 3.6 /CMM (1.8-8.9); NEUTROPHILS % (AUTO) 64.7 % (43.0-81.0); PLATELET COUNT (AUTO) 139 /CMM (150-450); RED BLOOD CELL COUNT(AUTO) 4.69 MIL/uL (4.0-5.2); WHITE BLOOD COUNT (AUTO) 5.5 K/uL (4.3-11.0)
--- NOTE | 2020-09-14 07:00 | NUR ---
RN NOTES AWAKE, DNIES P[AIN, NO SOB, MORNING CARE RENDERED,PT. NEEDS ATTENDED
[2020-09-14 07:01] LABS: CALCIUM, SERUM 8.2 mg/dL (8.5-10.1); CREATININE 0.7 mg/dL (0.6-1.3); MAGNESIUM 1.9 mg/dL (1.8-2.4); PHOSPHORUS 4.1 mg/dL (2.5-4.9); POTASSIUM 3.9 mmol/L (3.5-5.1)
--- NOTE | 2020-09-14 07:30 | NUR ---
MS/RN Opening note Patient received from shift superintendent. A/O X3, vital signs stable, no fevers noted. Denies any nausea, no vomiting this morning, able to tolerate clear liquid diet. IV fluids infusing at 75ml/hr via right hand 20 gauge, no signs of infiltration seen. Safety measures in place, bed in low setting, side rails X3 in upright position. Call light within reach, will continue to monitor and ensure safety.
[2020-09-14 08:00] VITALS: BP 118/70
[2020-09-14 08:05] LABS: THYROID STIMULATING HORMONE 0.525 uIU/mL (0.358-3.74)
[2020-09-14] MEDS ORDERED: PRIMIDONE 50 MG TABLET PO SCH (09:00)
[2020-09-14] MEDS ORDERED: FLUTICASONE/VILANTEROL 1 EACH BLST.W.DEV IH SCH (09:00)
[2020-09-14] MEDS ORDERED: MEMANTINE HCL 5 MG TABLET PO SCH (09:00)
--- NOTE | 2020-09-14 09:00 | NUR ---
MS/RN Medications Morning medications administered as ordered.
[2020-09-14] MEDS: CARBIDOPA/LEVODOPA 25/100 MG 1 UDTAB PO SCH ×2 (10:21→12:27)
[2020-09-14] MEDS: PANTOPRAZOLE 40 MG TABLET.DR PO SCH (10:21)
--- NOTE | 2020-09-14 11:00 | NUR ---
MS/RN S/B Dr Gasca Seen by DNP - patient to be discharged to home later today, no new prescriptions needed. To follow up with primary care doctor in 7-10 days.
--- NOTE | 2020-09-14 12:48 | NUR ---
MS/RN Exit care Exit care prepared ready for discharge later today.
--- NOTE | 2020-09-14 15:34 | NUR ---
EMPLOYEE RELATIONS CONSULTANT NOTE PT DISCHARGED HOME WITH . PT A/O X3. VS STABLE. NO SOB OR RESPIRATORY DISTRESS PRESENT. HL REMOVED. ID BAND REMOVED.
== END 2020-09-14 15:25 | disposition home or self-care (01) | DRG 439 ==
LOC: ER 06:19 → MED 11:31
PROVIDERS: ADMIT Nurse Practitioner Acute Care; ATTEND Nurse Practitioner Acute Care
DX: K85.90 Acute pancreatitis without necrosis or infection, unspecified (principal); E44.1 Mild protein-calorie malnutrition; F02.80 Dementia in other diseases classified elsewhere, unspecified severity, without behavioral disturbance, psychotic disturbance, mood disturbance, and anxiety; G20 Parkinson's disease; G30.9 Alzheimer's disease, unspecified; J45.909 Unspecified asthma, uncomplicated; Z90.49 Acquired absence of other specified parts of digestive tract; Z88.6 Allergy status to analgesic agent; Z88.8 Allergy status to other drugs, medicaments and biological substances; Z79.51 Long term (current) use of inhaled steroids; Z79.899 Other long term (current) drug therapy; R79.89 Other specified abnormal findings of blood chemistry; Z90.710 Acquired absence of both cervix and uterus; K44.9 Diaphragmatic hernia without obstruction or gangrene
CPT/HCPCS: 36415; 71045-TC; 80048-TC; 80061-TC; 80076-TC; 83690-TC; 83735-TC; 84100-TC; 84443-TC; 84484-TC; 85025-TC; 87081-TC; C9803; G0378; J1200; J2270; J2405; J3490; J7030; J7040

== ENCOUNTER 2020-10-17 20:38 | Emergency (ER) | payer MEDICARE, OTHER ==
[~2020-10-17] VITALS: Ht 160 cm; Wt 72.6 kg
[~2020-10-17 20:38] MED LIST changes: +ALBU18HF2 PO; +ATOR10TA PO; +CARB-93 PO; -CETI10TA14 PO; +DIPH1TAB PO; +DONE10TA44 PO; +ESCI10TA PO; +ESCI20TA PO; +FLUO20TA28 PO; +FLUT1BLS IH; +HYDR-4354 PO; +LORA10TA7 PO; +MEMA28CA5 PO; +METH4TAB3 PO; +MONT10TA22 PO; +OMEPRAZOLE DR PO; +ONDA4TAB5 PO; +P-EP-92 PO; -PANT40TA2 PO; +PRIM250T8 PO; +PRIM50TA PO; +PRIM50TA27 PO
--- NOTE | 2020-10-17 20:40 | NUR ---
FREDDIE FROM HOME FOR C/O ON AND OFF EPIGASTRIC PAIN W/ N/V FOR THE PAST FEW YEARS. DENIED CP, SOB OR DIZZINESS. NO MEDS BRIDGE IRONWORKER HELPER. PT AMBULATORY TO BED 9, WAS PLACED ON A MONITOR ,VSS. WILL CONT TO MONITOR ,
[2020-10-17] MEDS ORDERED: ONDANSETRON HCL/PF 4 MG/2 ML VIAL ONE (20:57)
[2020-10-17] MEDS ORDERED: MAG HYDROX/AL HYDROX/SIMETH 30 ML UDC ONE (20:57)
[2020-10-17] MEDS ORDERED: FAMOTIDINE/PF INJ 20 MG/2 ML VIAL IV ONE ×2 (20:57→21:00)
[2020-10-17] MEDS ORDERED: LIDOCAINE VISCOUS 2% UD 15 ML UDC ONE (20:57)
[2020-10-17] MEDS ORDERED: IV NS 0.9% 500 ML BAG IV ONE (21:00)
[2020-10-17] MEDS ORDERED: LIDOCAINE VISCOUS 2% UD 15 ML UDC MM ONE (21:00)
[2020-10-17] MEDS ORDERED: ONDANSETRON HCL/PF 4 MG/2 ML VIAL IVP ONE (21:00)
[2020-10-17] MEDS ORDERED: MAG HYDROX/AL HYDROX/SIMETH 30 ML UDC PO ONE (21:00)
[2020-10-17 21:12] LABS: BASOPHILS # (AUTO) 0.1 /CMM (0.0-0.2); BASOPHILS % (AUTO) 0.8 % (0.0-2.0); EOSINOPHILS % (AUTO) 10.3 % (0.0-6.0); HEMATOCRIT 39 % (33-45); HEMOGLOBIN 13.5 g/dL (11.5-14.8); LYMPHOCYTES % (AUTO) 34.1 % (20.0-44.0); MEAN CORPUSCULAR HGB CONC 34 g/dl (31.0-36.0); MEAN CORPUSCULAR VOLUME 86 fL (82-100); MONOCYTES # (AUTO) 0.6 /CMM (0.1-1.30); MONOCYTES % (AUTO) 9.4 % (2.0-12.0); NEUTROPHILS # (AUTO) 2.7 /CMM (1.8-8.9); NEUTROPHILS % (AUTO) 45.4 % (43.0-81.0); PLATELET COUNT (AUTO) 141 /CMM (150-450); RED BLOOD CELL COUNT(AUTO) 4.57 MIL/uL (4.0-5.2)
--- NOTE | 2020-10-17 21:18 | NUR ---
US TECH AT BED SIDE
[2020-10-17] MEDS ORDERED: MAG355OR18 PO (21:36)
[2020-10-17] MEDS ORDERED: FAMO20TA8 PO (21:36)
[2020-10-17] MEDS ORDERED: OMEP20CA15 PO (21:36)
[2020-10-17 21:57] LABS: CALCIUM, SERUM 8.7 mg/dL (8.5-10.1); CARBON DIOXIDE 27 mmol/L (21-32); CHLORIDE 101 mmol/L (98-107); CREATININE 0.8 mg/dL (0.6-1.3); GLUCOSE 142 mg/dL (74-106); POTASSIUM 4.1 mmol/L (3.5-5.1); SODIUM SERUM 137 mmol/L (136-145); UREA NITROGEN, BLOOD 30 mg/dL (7-18)
[2020-10-17 22:03] LABS: ALANINE AMINOTRANSFERASE 16 U/L (12-78); ALBUMIN 3.3 g/dL (3.4-5.0); ALKALINE PHOSPHATASE 63 U/L (46-116); ASPARTATE AMINOTRANSFERASE 33 U/L (15-37); BILIRUBIN,DIRECT 0.1 mg/dL (0.0-0.2); BILIRUBIN,TOTAL 0.4 mg/dL (0.2-1.0); LIPASE 261 U/L (73-393); TOTAL PROTEIN, SERUM 6.6 g/dL (6.4-8.2)
--- NOTE | 2020-10-17 22:23 | NUR ---
PT IS MEDICALLY STABLE FOR D.C. IV removed. Catheter intact and site benign. Pressure and 4x4 applied to site. No bleeding noted.Patient discharged to home in stable condition. Rx and Written and verbal after care instructions given. Patient verbalizes understanding of instruction.
[2020-10-17 22:54] VITALS: BP 119/69
== END 2020-10-17 22:55 | disposition home or self-care (01) ==
LOC: ER 20:40 → MERGE 20:40 → ER 22:55
DX: R10.13 Epigastric pain (principal); R11.10 Vomiting, unspecified; J45.909 Unspecified asthma, uncomplicated; K21.9 Gastro-esophageal reflux disease without esophagitis; I10 Essential (primary) hypertension; E78.00 Pure hypercholesterolemia, unspecified; I25.10 Atherosclerotic heart disease of native coronary artery without angina pectoris; F17.200 Nicotine dependence, unspecified, uncomplicated; Z90.49 Acquired absence of other specified parts of digestive tract; Z98.890 Other specified postprocedural states; Z87.19 Personal history of other diseases of the digestive system; Z88.5 Allergy status to narcotic agent; Z88.6 Allergy status to analgesic agent; Z79.899 Other long term (current) drug therapy
CPT/HCPCS: 36415; 76700; 80048; 80076; 83690; 84484; 85025; 93005; 96374; 96375; 99285; J2405; J3490; J7040

== ENCOUNTER 2020-11-22 21:27 | Inpatient (IN) | payer MEDICARE, OTHER ==
[~2020-11-22] VITALS: Ht 160 cm; Wt 57.2 kg
[~2020-11-22 21:27] MED LIST changes: +FAMO20TA8 PO; +MAG355OR18 PO; +OMEP20CA15 PO
--- NOTE | 2020-11-22 21:32 | NUR ---
PT BIBRA C/O OF EPIGASTRIC PAIN AND ONE EPISODE OF EMESIS. PT AAOX4 BREATHING EVENLY AND UNLABORED. PT HAS HX OF ASTHMA, PLACED ON 2L O2 FOR COMFORT. PT SKIN WARM, DRY, AND INTACT. PT ATTACHED TO MONITOR AND POX. PT GIVEN BLANKET AND CALL LIGHT WITHIN REACH.
[2020-11-22] MEDS ORDERED: ONDANSETRON HCL/PF 4 MG/2 ML VIAL IVP ONE (22:00)
[2020-11-22] MEDS ORDERED: PANTOPRAZOLE 40 MG VIAL IV ONE (22:00)
--- NOTE | 2020-11-22 22:02 | NUR ---
BLOOD OBTAINED AND SENT TO LAB
[2020-11-22] MEDS ORDERED: ONDANSETRON HCL/PF 4 MG/2 ML VIAL ONE (22:04)
[2020-11-22] MEDS ORDERED: PANTOPRAZOLE 40 MG VIAL ONE (22:04)
[2020-11-22 22:08] LABS: BASOPHILS % (AUTO) 0.6 % (0.0-2.0); HEMATOCRIT 41 % (33-45); HEMOGLOBIN 13.7 g/dL (11.5-14.8); LYMPHOCYTES # (AUTO) 1.2 /CMM (0.8-4.8); LYMPHOCYTES % (AUTO) 19.8 % (20.0-44.0); MEAN CORPUSCULAR HGB CONC 34 g/dl (31.0-36.0); MEAN CORPUSCULAR VOLUME 86 fL (82-100); MONOCYTES # (AUTO) 0.5 /CMM (0.1-1.30); MONOCYTES % (AUTO) 8.4 % (2.0-12.0); NEUTROPHILS % (AUTO) 63.2 % (43.0-81.0); PLATELET COUNT (AUTO) 133 /CMM (150-450); RED BLOOD CELL COUNT(AUTO) 4.73 MIL/uL (4.0-5.2); WHITE BLOOD COUNT (AUTO) 6.3 K/uL (4.3-11.0)
--- NOTE | 2020-11-22 22:10 | NUR ---
XRAY AT BEDSIDE
[2020-11-22 22:25] LABS: CALCIUM, SERUM 8.7 mg/dL (8.5-10.1); CARBON DIOXIDE 28 mmol/L (21-32); CHLORIDE 105 mmol/L (98-107); CREATININE 0.6 mg/dL (0.6-1.3); GLUCOSE 121 mg/dL (74-106); SODIUM SERUM 141 mmol/L (136-145); UREA NITROGEN, BLOOD 30 mg/dL (7-18)
[2020-11-22] MEDS ORDERED: LIDOCAINE VISCOUS 2% UD 15 ML UDC ONE (22:25)
[2020-11-22] MEDS ORDERED: MAG HYDROX/AL HYDROX/SIMETH 30 ML UDC ONE (22:26)
[2020-11-22] MEDS ORDERED: MAG HYDROX/AL HYDROX/SIMETH 30 ML UDC PO ONE (22:30)
[2020-11-22] MEDS ORDERED: LIDOCAINE VISCOUS 2% UD 15 ML UDC MM ONE (22:30)
[2020-11-22 22:37] LABS: ALANINE AMINOTRANSFERASE 9 U/L (12-78); ALBUMIN 3.3 g/dL (3.4-5.0); ALKALINE PHOSPHATASE 73 U/L (46-116); ASPARTATE AMINOTRANSFERASE 101 U/L (15-37); BILIRUBIN,DIRECT 0.2 mg/dL (0.0-0.2); BILIRUBIN,TOTAL 0.6 mg/dL (0.2-1.0); TOTAL PROTEIN, SERUM 6.9 g/dL (6.4-8.2)
[2020-11-22 22:38] LABS: LIPASE 3740 U/L (73-393)
--- NOTE | 2020-11-22 22:53 | NUR ---
CALLED LAB FOR COVID SWAB
--- NOTE | 2020-11-22 23:14 | NUR ---
COVID SWAB SENT TO LAB
--- NOTE | 2020-11-22 23:17 | NUR ---
CALLED [facility], PAGED OUMAR
--- NOTE | 2020-11-22 23:25 | NUR ---
M/S 103
[2020-11-22] MEDS ORDERED: Z GUARD REMEDY 2 OZ OINT TP PRN (23:30)
[2020-11-22] MEDS ORDERED: MAGNESIUM HYDROXIDE 30 ML UDC PO PRN (23:30)
[2020-11-22] MEDS ORDERED: MAG HYDROX/AL HYDROX/SIMETH 30 ML UDC PO PRN (23:30)
[2020-11-22] MEDS ORDERED: ONDANSETRON HCL/PF 4 MG/2 ML VIAL IVP PRN (23:30)
[2020-11-22] MEDS ORDERED: ACETAMINOPHEN 325 MG TABLET PO PRN (23:30)
[2020-11-22] MEDS ORDERED: HYDROCODONE/APAP 5/325MG TABLET PO PRN (23:30)
[2020-11-22] MEDS ORDERED: ZOLPIDEM TARTRATE 5 MG TABLET PO PRN (23:30)
--- NOTE | 2020-11-22 23:38 | NUR ---
CALLED LAB FOR UPDATE ON COVID RESULT. PER LAB 6 MORE MINUTES
--- NOTE | 2020-11-22 23:41 | NUR ---
Shaun martinez in [facility] - 11/22/20 at 2341 by ABDULLAHI PER JAN CASTILLO NEGATIVE
--- NOTE | 2020-11-22 23:45 | NUR ---
GAVE REPORT TO TIANNA HINES FOR JAY
--- NOTE | 2020-11-22 23:56 | NUR ---
ADMIT NOTE ADMITTED 79 YR OLD FEMALE FROM ER TO ROOM 103 VIA GURNEY. PATIENT IS ALERT AND ORIENTED X1-2, PERIODS OF CONFUSION. ABLE TO VERBALIZE NEEDS. ON O2 2LPM VIA NC, O2 SAT 98%. NO SOB OR ANY RESPIRATORY DISTRESS. HEAD TO TOE ASSESSMENT DONE, SKIN IS INTACT. IV ACCESS ON RIGHT HAND #22, PATENT AND FLUSHED. DENIES ANY PAIN/EPIGASTRIC PAIN AT THIS TIME. ORIENTED TO ROOM/CALL LIGHT. SAFETY MEASURES IMPLEMENTED. SIDE RAILS UP X2. WILL CONTINUE TO MONITOR.
[2020-11-23 00:05] VITALS: BP 159/86
[2020-11-23] MEDS: IV NS 0.9% 1,000 ML IV SCH ×3 (00:14→20:15)
[2020-11-23 04:00] VITALS: BP 159/81
[2020-11-23 06:20] LABS: BASOPHILS % (AUTO) 0.3 % (0.0-2.0); EOSINOPHILS % (AUTO) 8.3 % (0.0-6.0); HEMATOCRIT 41 % (33-45); HEMOGLOBIN 13.8 g/dL (11.5-14.8); LYMPHOCYTES % (AUTO) 19.9 % (20.0-44.0); MEAN CORPUSCULAR HGB CONC 34 g/dl (31.0-36.0); MEAN CORPUSCULAR VOLUME 86 fL (82-100); MONOCYTES # (AUTO) 0.5 /CMM (0.1-1.30); MONOCYTES % (AUTO) 9.6 % (2.0-12.0); NEUTROPHILS # (AUTO) 3.2 /CMM (1.8-8.9); NEUTROPHILS % (AUTO) 61.9 % (43.0-81.0); PLATELET COUNT (AUTO) 129 /CMM (150-450); RED BLOOD CELL COUNT(AUTO) 4.75 MIL/uL (4.0-5.2); WHITE BLOOD COUNT (AUTO) 5.1 K/uL (4.3-11.0)
[2020-11-23 06:46] LABS: CALCIUM, SERUM 8.3 mg/dL (8.5-10.1); CREATININE 0.6 mg/dL (0.6-1.3); MAGNESIUM 1.9 mg/dL (1.8-2.4); PHOSPHORUS 4.7 mg/dL (2.5-4.9); POTASSIUM 4.1 mmol/L (3.5-5.1)
--- NOTE | 2020-11-23 06:56 | NUR ---
RN NOTE PATIENT AWAKE IN BED, A/O 1-2. NO SOB OR ANY RESPIRATORY DISTRESS. ON O2 2LPM VIA NASAL CANNULA, O2 SAT 98%. IV ACCESS RIGHT HAND #22 RUNNING NS @100ML/HR. NO S/S OF ANY INFILTRATION. VOIDED X2 TO THE BATHROOM, PATIENT IS STAND BY ASSIST. KEPT CLEAN AND DRY. BED LOCKED AND IN LOWEST POSITION. CALL LIGHT WITHIN REACH. WILL ENDORSE TO AM SHIFT.
--- NOTE | 2020-11-23 07:10 | NUR ---
RN OPENING NOTE PATIENT RECIEVED AWAKE IN BED, A/O 1-2. NO SOB OR ANY RESPIRATORY DISTRESS NOTED. PATIENT ON O2 THERAPY VIA NC AT 2LPM. IV ACCESS RIGHT HAND #22 RUNNING NS AT 100ML/HR. NO S/S OF ANY INFILTRATION. VOIDED X2 TO THE BATHROOM. SAFETY PRECAUTIONS IMPLEMENTED, BED LOCKED AND IN LOWEST POSITION, SIDE RAILS UP X2, CALL LIGHT WITHIN REACH. WILL CONTINUE TO MONITOR AND PROVIDE CARE THROUGHOUT SHIFT.
[2020-11-23] MEDS ORDERED: ALBUTEROL FS 2.5 MG/3 ML VIAL.NEB IH PRN (13:30)
[2020-11-23] MEDS: CARBIDOPA/LEVODOPA 25/100 MG 1 UDTAB PO SCH ×2 (13:31→16:04)
--- NOTE | 2020-11-23 14:05 | NUR ---
CHARGE NURSE NOTES PATIENT TO BE TRANSFERRED TO 3W RM 324-1 PER NURSING CORPORATE LIBRARIAN
--- NOTE | 2020-11-23 14:37 | NUR ---
patient transferred to for continuation of care. report given to marta
[2020-11-23] MEDS: FLUOXETINE HCL 20 MG CAPSULE PO SCH (14:39)
--- NOTE | 2020-11-23 14:45 | NUR ---
MS RN OPENING NOTES RECEIVED PATIENT FROM [facility]. PATIENT ARRIVED AT THE UNIT MEDICALLY STABLE. PATIENT IS BREATHING EVENLY AND UNLABORED ON 2LPM NASAL CANNULA. PATIENT IS A/O X2-3. PER REPORT HAS SOME EPISODES OF CONFUSION. PATIENT IS AMBULATORY WITH ASSIST. SKIN IN TACT. PATIENT HAS RIGHT HAND 22 GAUGE WITH NS RUNNING 100ML/HR. PATIENT HAS NO COMPLAINTS OF PAIN AT THIS TIME. SAFETY MEASURES ARE IN PLACE. BED IS LOW LOCKED AND CALL LIGHT WITHIN REACH. WILL CONTINUE TO MONITOR PATIENT.
[2020-11-23] MEDS: MEMANTINE HCL 5 MG TABLET PO SCH (16:04)
[2020-11-23] MEDS ORDERED: FAMOTIDINE (20 MG) 20 MG TABLET PO SCH (17:00)
--- NOTE | 2020-11-23 18:56 | NUR ---
MS RN CLOSING NOTES PATIENT IS BREATHING EVENLY AND UNLABORED ON 2LPM NASAL CANNULA. PATIENT IS A/O X2-3. PATIENT IS AMBULATORY WITH ASSIST. SKIN IN TACT. PATIENT HAS RIGHT HAND 22 GAUGE WITH NS RUNNING 100ML/HR. PATIENT HAS NO COMPLAINTS OF PAIN AT THIS TIME. SAFETY MEASURES ARE IN PLACE. BED IS LOW LOCKED AND CALL LIGHT WITHIN REACH WILL ENDORSE TO NEXT SHIFT.
[2020-11-23 20:00] VITALS: BP 140/81
--- NOTE | 2020-11-23 20:44 | NUR ---
RN NOTES RECEIVED PATIENT IN BED, ALERT AND ORIENTED X3, UNSTEADY GAIT, DENIES PAIN AT THIS TIME, ON CLEAR LIQUID DIET. WILL CONTINUE TO MONITOR.
[2020-11-23] MEDS ORDERED: ATORVASTATIN 10 MG TABLET PO SCH (22:00)
[2020-11-23] MEDS ORDERED: DONEPEZIL 5 MG TABLET PO SCH (22:00)
[2020-11-23] MEDS ORDERED: MONTELUKAST SODIUM (10MG) 10 MG TABLET PO SCH (22:00)
--- NOTE | 2020-11-24 04:36 | NUR ---
RN NOTES PATIENT REMOVED IV LINE, REFUSED RE-INSERTION, CONFUSION COMES AND GOES. ON NS AT 100 ML/HR.
--- NOTE | 2020-11-24 06:30 | NUR ---
RN NOTES ALERT AND ORIENTED X2-3,WITH CONFUSION, STABLE ON ROOM AIR, NO DYSPNEA, AMBULATES IN THE HALLWAY, NO COMPLAIN OF PAIN, ON CLEAR LIQUID DIET, TOOK ALL PM MEDS, NO COMPLAINTS OF ABDOMINAL DISCOMFORT OR N/V. ON NS AT 100 ML/HR, PATIENT PULLED OUT IV. REFUSED ANOTHER IV PLACEMENT. ADVANCE DIET TOLERATED
[2020-11-24 07:17] LABS: CALCIUM, SERUM 8.2 mg/dL (8.5-10.1); CREATININE 0.6 mg/dL (0.6-1.3); POTASSIUM 3.9 mmol/L (3.5-5.1)
--- NOTE | 2020-11-24 07:48 | NUR ---
MS RN OPENING NOTES RECEIVED PATIENT IN BED, AWAKE, A/O X2, CONFUSED. PATIENT ON ROOM AIR; BREATHING EVEN AND UNLABORED WITH NO SOB NOTED. NO COMPLAINING OF PAIN. PATIENT REMOVED HER IV ACCESS AND REFUSING TO REINSERT IT; PER PATIENT "IT DOES NOT BELONG WITH HER". SAFETY PRECAUTIONS IN PLACE; BED IN LOW POSITION AND LOCKED, RAILS UP X2, CALL LIGHT WITHIN REACH. WILL CONTINUE TO MONITOR PATIENT.
[2020-11-24] MEDS: CARBIDOPA/LEVODOPA 25/100 MG 1 UDTAB PO SCH (08:07)
[2020-11-24] MEDS: FLUOXETINE HCL 20 MG CAPSULE PO SCH (08:07)
[2020-11-24] MEDS: MEMANTINE HCL 5 MG TABLET PO SCH (08:08)
[2020-11-24] MEDS ORDERED: LORATADINE 10 MG TABLET PO SCH (09:00)
[2020-11-24] MEDS ORDERED: PANTOPRAZOLE 40 MG TABLET.DR PO SCH (09:00)
[2020-11-24] MEDS ORDERED: FLUTICASONE/VILANTEROL 1 EACH BLST.W.DEV IH SCH (09:00)
--- NOTE | 2020-11-24 12:04 | NUR ---
MS PARTS ANALYST NOTES PATIENT DISCHARGED HOME IN MEDICALLY STABLE CONDITION. A/O X3, ABLE TO MAKE HER NEEDS KNOWN. ALL DISCHARGE PAPERWORK READY AND SIGNED BY PATIENT; TEACHING REGARDING DISCHARGE GIVEN TO PATIENT AND ; BOTH VERBALIZED UNDERSTANDING. CLOTHES AND VALUABLES ACCOUNTED FOR AND FORM SIGNED WELL. SKIN INTACT. PATIENT HAD EARLY LUNCH AND TOLERATED WELL. NO COMPLAINS OF PAIN. IV ACCESS WAS REMOVED. PATIENT LEFT THE FLOOR AT 1200 ACCOMPANIED BY HER AND RN. OUTSIDE A PRIVATE CAR WAS WAITING TO TAKE THE PATIENT HOME.
[2020-11-24] MEDS ORDERED: PRED50TA PO (20:51)
== END 2020-11-24 12:00 | disposition home or self-care (01) | DRG 440 ==
LOC: ER 21:29 → MEDSG1 23:27 → MED 11-23 14:02
PROVIDERS: ADMIT Nurse Practitioner Acute Care; ATTEND Nurse Practitioner Acute Care
DX: K85.90 Acute pancreatitis without necrosis or infection, unspecified (principal); J45.909 Unspecified asthma, uncomplicated; G20 Parkinson's disease; Z20.822 Contact with and (suspected) exposure to COVID-19; F02.80 Dementia in other diseases classified elsewhere, unspecified severity, without behavioral disturbance, psychotic disturbance, mood disturbance, and anxiety; G30.9 Alzheimer's disease, unspecified; K21.9 Gastro-esophageal reflux disease without esophagitis; Z88.6 Allergy status to analgesic agent; Z88.5 Allergy status to narcotic agent; Z88.8 Allergy status to other drugs, medicaments and biological substances; Z79.899 Other long term (current) drug therapy; F32.9 Major depressive disorder, single episode, unspecified; I70.0 Atherosclerosis of aorta; R79.89 Other specified abnormal findings of blood chemistry; Z90.49 Acquired absence of other specified parts of digestive tract; Z90.710 Acquired absence of both cervix and uterus; Z79.51 Long term (current) use of inhaled steroids; K59.00 Constipation, unspecified; M43.16 Spondylolisthesis, lumbar region; M47.816 Spondylosis without myelopathy or radiculopathy, lumbar region
CPT/HCPCS: 36415; 71045-TC; 80048-TC; 80061-TC; 80076-TC; 83690-TC; 83735-TC; 84100-TC; 84484-TC; 85025-TC; 87081-TC; C9113; G0378; J2405; J7030

== ENCOUNTER 2020-11-24 19:34 | Emergency (ER) | payer MEDICARE, OTHER ==
[~2020-11-24] VITALS: Ht 162.6 cm; Wt 57.2 kg
[~2020-11-24 19:34] MED LIST changes: -ALBU18HF2 PO; -CARB1TAB21 PO; -DIPH1TAB PO; -ESCI10TA PO; -ESCI20TA PO; -FLUT1BLS IH; -HYDR-3642 PO; -HYDR-4354 PO; -MAG355OR18 PO; -MEMA7CAP2 PO; -METH4TAB3 PO; -OMEPRAZOLE DR PO; -ONDA4TAB5 PO; -P-EP-92 PO; -PRIM250T8 PO; -PRIM50TA PO; -PRIM50TA27 PO
--- NOTE | 2020-11-24 19:46 | NUR ---
PT AAOX4. BIBRA FROM HOME TOOK IBUPROFEN BY ACCIDENT. PT ALLERGIC TO IBUPROFEN. PT PLACED IN BED 9 ON TANK HOOP BENDER AND PULSE OX.
[2020-11-24] MEDS ORDERED: FAMOTIDINE/PF INJ 20 MG/2 ML VIAL IV ONE ×2 (20:24→20:30)
[2020-11-24] MEDS ORDERED: diphenhydrAMINE HCL 50 MG/ML VIAL ONE (20:24)
[2020-11-24] MEDS ORDERED: methylPREDNISolone SOD SUCC 125 MG/2ML VIAL ONE (20:24)
[2020-11-24] MEDS ORDERED: ALBUTEROL FS 2.5 MG/3 ML VIAL.NEB ONE (20:28)
[2020-11-24] MEDS ORDERED: IPRATROPIUM NEB FS 0.5 MG/2.5 ML AMPUL.NEB ONE (20:28)
[2020-11-24] MEDS ORDERED: diphenhydrAMINE HCL 50 MG/ML VIAL IV ONE (20:30)
[2020-11-24] MEDS ORDERED: IPRATROPIUM NEB FS 0.5 MG/2.5 ML AMPUL.NEB NEB ONE (20:30)
[2020-11-24] MEDS ORDERED: ALBUTEROL FS 2.5 MG/3 ML VIAL.NEB CONTNEB ONE (20:30)
[2020-11-24] MEDS ORDERED: methylPREDNISolone SOD SUCC 125 MG/2ML VIAL IV ONE (20:30)
--- NOTE | 2020-11-24 20:31 | NUR ---
RT AT BEDSIDE FOR BREATHING TREATMENT
[2020-11-24] MEDS ORDERED: PRED50TA PO (20:51)
--- NOTE | 2020-11-24 21:12 | NUR ---
PT SAT 100% STATED SHE FEELS BETTER. DAUGHTER CALLED FOR DISCHAGE.
--- NOTE | 2020-11-24 21:55 | NUR ---
IV removed. Catheter intact and site benign. Pressure and 4x4 applied to site. No bleeding noted.
--- NOTE | 2020-11-24 21:55 | NUR ---
Patient discharged to home in stable condition. Written and verbal after care instructions given. Patient verbalizes understanding of instruction and RX. Picked up by daughter. Ambulatory with steady gait. vss.
[2020-11-24 21:56] VITALS: BP 138/89
== END 2020-11-24 21:56 | disposition home or self-care (01) ==
LOC: ER 19:36
DX: J45.909 Unspecified asthma, uncomplicated (principal); T39.315A Adverse effect of propionic acid derivatives, initial encounter; G30.9 Alzheimer's disease, unspecified; F02.80 Dementia in other diseases classified elsewhere, unspecified severity, without behavioral disturbance, psychotic disturbance, mood disturbance, and anxiety; K21.9 Gastro-esophageal reflux disease without esophagitis; Z90.49 Acquired absence of other specified parts of digestive tract; Z88.6 Allergy status to analgesic agent; Z79.899 Other long term (current) drug therapy; Y92.89 Other specified places as the place of occurrence of the external cause
CPT/HCPCS: 94640; 96374; 96375; 99285; J1200; J2930; J3490

== ENCOUNTER 2021-01-18 21:09 | Inpatient (IN) | payer MEDICARE, OTHER ==
[~2021-01-18] VITALS: Ht 162.6 cm; Wt 56.3 kg
[~2021-01-18 21:09] MED LIST changes: +CARB-300 PO; -CARB-93 PO; +PRED50TA PO
--- NOTE | 2021-01-18 21:24 | NUR ---
ER AT BEDSIDE
[2021-01-18 21:27] LABS: BASOPHILS % (AUTO) 0.2 % (0.0-2.0); EOSINOPHILS % (AUTO) 2.2 % (0.0-6.0); HEMATOCRIT 44 % (33-45); HEMOGLOBIN 14.6 g/dL (11.5-14.8); LYMPHOCYTES # (AUTO) 2.9 /CMM (0.8-4.8); MEAN CORPUSCULAR HGB CONC 33 g/dl (31.0-36.0); MEAN CORPUSCULAR VOLUME 88 fL (82-100); MONOCYTES # (AUTO) 0.3 /CMM (0.1-1.30); MONOCYTES % (AUTO) 4.6 % (2.0-12.0); NEUTROPHILS # (AUTO) 2.9 /CMM (1.8-8.9); PLATELET COUNT (AUTO) 169 /CMM (150-450); RED BLOOD CELL COUNT(AUTO) 4.98 MIL/uL (4.0-5.2); WHITE BLOOD COUNT (AUTO) 6.2 K/uL (4.3-11.0)
--- NOTE | 2021-01-18 21:28 | NUR ---
PT AAOX4. BIBRA FROM HOME C/O ALLERGIC REACTION AND ABD PAIN S/P TALING NAPROXEN. PT ALSO STATED SHE VOMITTED. LINE ESTABLSIHED RH 20G, BLOOD WORK COLLECTED, SENT TO LAB. PT WAS SAT 76% ROOM AIR. WAS PLACED ON 6L NC SAT 90%. ER AWARE.
[2021-01-18] MEDS ORDERED: methylPREDNISolone SOD SUCC 125 MG/2ML VIAL ONE (21:38)
[2021-01-18] MEDS ORDERED: diphenhydrAMINE HCL 50 MG/ML VIAL ONE (21:39)
[2021-01-18] MEDS ORDERED: ALBUTEROL FS 2.5 MG/3 ML VIAL.NEB ONE (21:44)
[2021-01-18] MEDS ORDERED: IPRATROPIUM NEB FS 0.5 MG/2.5 ML AMPUL.NEB ONE (21:44)
[2021-01-18] MEDS ORDERED: EPINEPHRINE (1:1000) 1 MG/ML AMPUL ONE ×3 (21:49→22:40)
[2021-01-18] MEDS ORDERED: Magnesium 1GM/D5W 100ML PREMIX 100 ML IV ONE (21:51)
[2021-01-18] MEDS ORDERED: FAMOTIDINE/PF INJ 20 MG/2 ML VIAL IV ONE ×2 (21:54→22:00)
[2021-01-18 21:56] LABS: CALCIUM, SERUM 8.6 mg/dL (8.5-10.1); CARBON DIOXIDE 31 mmol/L (21-32); CHLORIDE 105 mmol/L (98-107); CREATININE 0.7 mg/dL (0.6-1.3); GLUCOSE 128 mg/dL (74-106); POTASSIUM 3.8 mmol/L (3.5-5.1); SODIUM SERUM 141 mmol/L (136-145); UREA NITROGEN, BLOOD 22 mg/dL (7-18)
[2021-01-18] MEDS ORDERED: ALBUTEROL FS 2.5 MG/3 ML VIAL.NEB CONTNEB ONE (22:00)
[2021-01-18] MEDS ORDERED: EPINEPHRINE (1:1000) MDV 30 MG/30ML VIAL SUBCUT ONE ×2 (22:00→23:30)
[2021-01-18] MEDS ORDERED: IV NS 0.9% 1,000 ML IV ONE ×2 (22:00→23:00)
[2021-01-18] MEDS ORDERED: IPRATROPIUM NEB FS 0.5 MG/2.5 ML AMPUL.NEB NEB ONE (22:00)
[2021-01-18] MEDS ORDERED: diphenhydrAMINE HCL 50 MG/ML VIAL IV ONE (22:00)
[2021-01-18] MEDS ORDERED: Magnesium 1GM/D5W 100ML PREMIX PIGGYBACK IV ONE (22:00)
[2021-01-18] MEDS ORDERED: methylPREDNISolone SOD SUCC 125 MG/2ML VIAL IV ONE (22:00)
--- NOTE | 2021-01-18 22:08 | NUR ---
VERBAL ORDER FOR SECOND DOSE OF 0.3MG EPINEPHRINE SQ
[2021-01-18] MEDS ORDERED: RACEPINEPHRINE HCL 2.25% NEB 0.5 ML VIAL.NEB IH ONE ×2 (22:10→22:30)
--- NOTE | 2021-01-18 22:15 | NUR ---
PT PLACED ON BIPAP 12/5, RATE OF 6, 100 O2
[2021-01-18] MEDS ORDERED: EPINEPHRINE (1:1000) 5 MG in IV NS 0.9% 250 ML SUBCUT STA (22:22)
--- NOTE | 2021-01-18 22:24 | NUR ---
ER MD AT BEDSIDE SPEAKING TO DAUGHTER REGARDING PLAN OF CARE.
[2021-01-18] MEDS: EPINEPHRINE (1:1000) 5 MG in IV NS 0.9% 250 ML SUBCUT STA ×2 (22:25→22:49)
--- NOTE | 2021-01-18 22:26 | NUR ---
CALLED RT FOR ABG
[2021-01-18] MEDS ORDERED: EPINEPHRINE (1:10,000) SYRINGE 1 MG/10 ML DISP.SYRIN ONE (22:27)
[2021-01-18] MEDS ORDERED: TERBUTALINE SULFATE 1 MG/ML VIAL SQ ONE (22:30)
[2021-01-18 22:38] LABS: ABG BASE EXCESS -0.5 mmol/L; ABG OXYGEN SATURATION 99.3 % (92.0-98.5); ABG PCO2 63.6 mmHg (35.0-45.0); ABG PH 7.264 (7.350-7.450); ABG PO2 496.9 mmHg (75.0-100.0); AaDO2 152.5 mmHg; COHb 0.1 % (0.5-1.5); MetHb 0.6 % (0.0-1.5); O2Hb 98.6 % (94.0-97.0); SITE, ABG Left Radial; VENT MODE, BG BiPAP 12/5
--- NOTE | 2021-01-18 22:56 | NUR ---
PT MORE AWARE OF SURROUNDINGS. ER MD AND DAUGHTER AT BEDSIDE SPEAKING REGARDING PLAN OF CARE.
[2021-01-18 23:01] LABS: ABG OXYGEN SATURATION 98.3 % (92.0-98.5); ABG PCO2 74.4 mmHg (35.0-45.0); ABG PH 7.182 (7.350-7.450); ABG PO2 174.2 mmHg (75.0-100.0); AaDO2 113.2 mmHg; MetHb 0.6 % (0.0-1.5); O2Hb 97.7 % (94.0-97.0); SITE, ABG Left Radial; VENT MODE, BG MASK
--- NOTE | 2021-01-18 23:01 | NUR ---
ER TALKING TO JIA COREA DNP REGARDING PT ADMISSION.
--- NOTE | 2021-01-18 23:16 | NUR ---
PT NOW AAOX3, NAME, PLACE, AND TIME. TRYING TO SPEAK TO THE DAUGHTER. REMAINS ON BIPAP.
[2021-01-18] MEDS: IPRATROPIUM NEB FS 0.5 MG/2.5 ML AMPUL.NEB NEB SCH (23:30)
[2021-01-18] MEDS ORDERED: ONDANSETRON HCL/PF 4 MG/2 ML VIAL IVP PRN (23:30)
[2021-01-18] MEDS ORDERED: diphenhydrAMINE HCL 50 MG/ML VIAL IV PRN (23:30)
[2021-01-18] MEDS ORDERED: Z GUARD REMEDY 2 OZ OINT TP PRN (23:30)
[2021-01-18] MEDS ORDERED: FLUTICASONE/VILANTEROL 1 EACH BLST.W.DEV IH PRN (23:30)
[2021-01-18] MEDS ORDERED: ACETAMINOPHEN 325 MG TABLET PO PRN (23:30)
[2021-01-18] MEDS: ALBUTEROL FS 2.5 MG/0.5 ML VIAL.NEB NEB SCH (23:30)
--- NOTE | 2021-01-18 23:36 | NUR ---
REPORT GIVEN TO IVU TIANNA TOWNSEND. WILL TRANSPORT PT VIA ACLS PROTOCOL.
[2021-01-18] MEDS ORDERED: ALBUTEROL FS 2.5 MG/3 ML VIAL.NEB NEB PRN (23:45)
--- NOTE | 2021-01-18 23:58 | NUR ---
CALLED RT TO TRANSFER PT.
[2021-01-19] VITALS (25 sets, daily range): BP systolic 117–158; BP diastolic 34–115
--- NOTE | 2021-01-19 00:16 | NUR ---
PT TRANSFERED PER ACLS PROTOCOL
[2021-01-19 00:20] LABS: THYROID STIMULATING HORMONE 1.962 uIU/mL (0.358-3.74)
[2021-01-19] MEDS: ENOXAPARIN SODIUM 40 MG/0.4 ML DISP.SYRIN SQ SCH ×2 (00:28→21:24)
[2021-01-19] MEDS: PANTOPRAZOLE 40 MG TABLET.DR PO SCH ×2 (00:28→07:35)
[2021-01-19] MEDS: IV NS 0.9% 1,000 ML IV PRN ×2 (00:30→14:57)
--- NOTE | 2021-01-19 00:30 | NUR ---
DETECTIVE BOWLING ALLEY RCD PT FROM ER W/DX ASTHMA EXACERBATION AND SEVERE ALLERGIC REACTION. PT IS A/Ox4. O2 2L VIA NC; BIPAP PRN. ST ON MONITOR. DO NOT CONTINUE EPI DRIP PER MD. PTS ARM AND BACK WARM AND RED TO TOUCH. R HANG 20 G W/NS @ 75 ML/HR.
[2021-01-19] MEDS: ALBUTEROL FS 2.5 MG/0.5 ML VIAL.NEB NEB SCH ×6 (03:50→23:30)
[2021-01-19] MEDS: IPRATROPIUM NEB FS 0.5 MG/2.5 ML AMPUL.NEB NEB SCH ×6 (03:50→23:30)
[2021-01-19] MEDS: methylPREDNISolone SOD SUCC 125 MG/2ML VIAL IV SCH ×3 (04:21→21:23)
[2021-01-19 05:11] LABS: BASOPHILS % (AUTO) 0.1 % (0.0-2.0); EOSINOPHILS % (AUTO) 0.1 % (0.0-6.0); HEMATOCRIT 41 % (33-45); HEMOGLOBIN 13.9 g/dL (11.5-14.8); LYMPHOCYTES # (AUTO) 0.3 /CMM (0.8-4.8); LYMPHOCYTES % (AUTO) 3.3 % (20.0-44.0); MEAN CORPUSCULAR HGB CONC 34 g/dl (31.0-36.0); MEAN CORPUSCULAR VOLUME 88 fL (82-100); MONOCYTES # (AUTO) 0.4 /CMM (0.1-1.30); MONOCYTES % (AUTO) 4.3 % (2.0-12.0); NEUTROPHILS # (AUTO) 7.8 /CMM (1.8-8.9); NEUTROPHILS % (AUTO) 92.2 % (43.0-81.0); PLATELET COUNT (AUTO) 124 /CMM (150-450); RED BLOOD CELL COUNT(AUTO) 4.69 MIL/uL (4.0-5.2); WHITE BLOOD COUNT (AUTO) 8.5 K/uL (4.3-11.0)
[2021-01-19 05:17] LABS: ALBUMIN 3.5 g/dL (3.4-5.0); BILIRUBIN,TOTAL 0.7 mg/dL (0.2-1.0); CALCIUM, SERUM 7.7 mg/dL (8.5-10.1); CREATININE 0.9 mg/dL (0.6-1.3); MAGNESIUM 2.1 mg/dL (1.8-2.4); PHOSPHORUS 1.7 mg/dL (2.5-4.9); POTASSIUM 3.7 mmol/L (3.5-5.1); TOTAL PROTEIN, SERUM 6.8 g/dL (6.4-8.2)
--- NOTE | 2021-01-19 05:30 | NUR ---
MASK INSPECTOR REDNESS TO ARM AND BACK HAS DIMINISHED. PT STATES SHE IS FEELING BETTER.
--- NOTE | 2021-01-19 06:45 | NUR ---
MARKETING ACCOUNT EXECUTIVE PTON ROOM AIR NO DISTRESS NOTED.
[2021-01-19] MEDS: LORATADINE 10 MG TABLET PO SCH (08:07)
[2021-01-19] MEDS: MEMANTINE HCL 5 MG TABLET PO SCH ×2 (08:08→21:23)
[2021-01-19] MEDS: CARBIDOPA/LEVODOPA 25/100 MG 1 UDTAB PO SCH ×3 (08:09→17:07)
[2021-01-19] MEDS: FLUOXETINE HCL 20 MG CAPSULE PO SCH (08:09)
[2021-01-19] MEDS: MONTELUKAST SODIUM (10MG) 10 MG TABLET PO SCH (08:09)
[2021-01-19] MEDS: FAMOTIDINE (20 MG) 20 MG TABLET PO SCH ×2 (08:09→21:23)
--- NOTE | 2021-01-19 08:43 | NUR ---
RN NOTE 0715: Received patient awake, A/Ox4. On room air. No respiratory distress noted. SR on the monitor. 2PIVs intact, IVF infusing as ordered. 0840: No any significant changes noted at this time. S/E by Dr. Roberson, still tolerating room air. Kept clean, warm and dry. Needs attended. Able to for to BR with supervision only.
[2021-01-19] MEDS ORDERED: OMEPRAZOLE 20 MG CAPSULE.DR PO SCH (09:00)
[2021-01-19] MEDS ORDERED: K PHOS NEUTRAL 250 MG TABLET PO ONE (11:30)
--- NOTE | 2021-01-19 19:30 | NUR ---
RN OPENING NOTES: RECEIVED PT A/OX4 IN BED RESTING COMFORTABLY. PATIENT IN NO S/SX OF ACUTE DISTRESS AT THIS TIME. NO SOB NOTED. PATIENT'S BREATHING IS EVEN AND UNLABORED. PATIENT IS ON ROOM AIR ; TOLERATING WELL WITH 02 SAT OF 95% AT THE TIME OF RECEIVED. PATIENT ON TELE MONITORING READING SINUS RHYTHM HR IS @80s AT THE TIME OF RECEIVED.PT IS AMBULATORY. PATIENT ON SOFT DIET; TOLERATES WELL. NOTED IV SITES ON R HAND #20 AND L HAND #20 ; BOTH PATENT, INTACT AND FLUSHING WELL; NO S/S OF INFECTION OR INFILTRATION. WITH IV FLUID RUNNING ORDERED. SAFETY MEASURES HAVE BEEN PROVIDED AND IMPLEMENTED. PATIENT BED ALARM IS ON. HEAD OF BED ELEVATED. BED IS LOCKED, IN LOWEST POSITION AND SIDE RAILS UP. CALL LIGHT WITHIN REACH OF THE PATIENT. APPLICABLE ISOLATION PRECAUTIONS IN PLACE. WILL CONTINUE TO MONITOR AND REASSESS FOR ANY CHANGES AND WILL CARRY OUT ANY ONGOING AND ACTIVE MD ORDER.
[2021-01-19] MEDS ORDERED: ATORVASTATIN 10 MG TABLET PO SCH (22:00)
[2021-01-19] MEDS ORDERED: DONEPEZIL 5 MG TABLET PO SCH (22:00)
--- NOTE | 2021-01-19 22:07 | NUR ---
RT pt refused noc bipap. orin carl, notified
--- NOTE | 2021-01-19 22:13 | NUR ---
RN NOTES RT COORDINATED THAT PT REFUSED FOR BIPAP TX; RN ACKNOWLEDGED. PT'S CURRENT O2 SAT @95%. PAINTLESS DENT REPAIR TECHNICIAN MADE AWARE. WILL CONTINUE TO ASSESS AND MONITOR THROUGHOUT THE SHIFT.
--- NOTE | 2021-01-19 23:00 | NUR ---
RN NOTES NO CHANGE IN PATIENT CONDITION AT THIS TIME PATIENT VITALS STABLE, NO SIGNS OF ACUTE RESPIRATORY DISTRESS. ROLL EDGE MACHINE OPERATOR MADE AWARE. WILL CONTINUE TO MONITOR AND REASSESS FOR ANY CHANGES THROUGHOUT THE SHIFT.
--- NOTE | 2021-01-19 23:34 | NUR ---
RT pt refused tx. wants to sleep. notified orin carl
[2021-01-20] VITALS (7 sets, daily range): BP systolic 137–156; BP diastolic 44–94
[2021-01-20] MEDS: IPRATROPIUM NEB FS 0.5 MG/2.5 ML AMPUL.NEB NEB SCH ×3 (03:30→11:30)
[2021-01-20] MEDS: ALBUTEROL FS 2.5 MG/0.5 ML VIAL.NEB NEB SCH ×3 (03:30→11:30)
[2021-01-20] MEDS: IV NS 0.9% 1,000 ML IV PRN (04:00)
[2021-01-20] MEDS: methylPREDNISolone SOD SUCC 125 MG/2ML VIAL IV SCH ×2 (04:00→12:47)
--- NOTE | 2021-01-20 04:00 | NUR ---
RN NOTES PATIENT REMAINS IN NO ACUTE RESPIRATORY DISTRESS AT THIS TIME, NO CHANGES TO CONDITION/STATUS. AM PATIENT CARE DONE. LICENSED INSURANCE AGENT WELL AWARE. WILL CONTINUE TO MONITOR AND REASSESS FOR ANY CHANGES THROUGHOUT THE SHIFT
--- NOTE | 2021-01-20 04:30 | NUR ---
RN NOTES CALLED 3W, SPOKE WITH TIANNA KEENAN. PROVIDED ENDORSEMENT REPORT FOR JAY/ TRANSFER OF PATIENT FROM ICU TO 3W IN 327 BED#2. ALL PERTINENT INFO ABOUT PT'S STATUS AND CONDITION PROVIDED. TIANNA KEENAN ACKNOWLEDGED. CONFIGURATION MANAGEMENT ARCHITECT MADE AWARE.
[2021-01-20 04:41] LABS: BASOPHILS % (AUTO) 0.2 % (0.0-2.0); HEMATOCRIT 39 % (33-45); HEMOGLOBIN 13.4 g/dL (11.5-14.8); LYMPHOCYTES # (AUTO) 1.4 /CMM (0.8-4.8); LYMPHOCYTES % (AUTO) 13.3 % (20.0-44.0); MEAN CORPUSCULAR HGB CONC 34 g/dl (31.0-36.0); MEAN CORPUSCULAR VOLUME 87 fL (82-100); MONOCYTES # (AUTO) 0.5 /CMM (0.1-1.30); MONOCYTES % (AUTO) 5.3 % (2.0-12.0); NEUTROPHILS # (AUTO) 8.3 /CMM (1.8-8.9); NEUTROPHILS % (AUTO) 81.2 % (43.0-81.0); PLATELET COUNT (AUTO) 146 /CMM (150-450); WHITE BLOOD COUNT (AUTO) 10.2 K/uL (4.3-11.0)
--- NOTE | 2021-01-20 04:50 | NUR ---
RN NOTES PATIENT TRANSFERRED TO [facility] ROOM 327 #1 USING THE ACLS PROTOCOL. PATIENT SAFETY WAS MAINTAINED, ALL PATIENT BELONGINGS AND MEDS TRANSFERRED WITH THE PATIENT. PATIENT SAFETY WAS MAINTAINED, TIANNA KEENAN RECEIVED THE PATIENT AND WILL CONTINUE CARE. ICU BABY FORMULA WORKER WELL AWARE AND 3W BABY FORMULA WORKER MADE AWARE.
--- NOTE | 2021-01-20 05:15 | NUR ---
TELE/RN NOTES RECIEVED PATIETNT FROM ICU TO ROOM 327-1.PATIENT SUSTAINED NO INJURIES DURING TRANSPORT. PATIENT V/S ARE STABLE, PATIENT TOLERATING RA. PATIENT IS A/OX4. BREATHING IS EVEN AND UNLABORED, NO SOB NOTED. PATIENT IN NO ACUTE DISTRESS NOTED. SAFETY MEASURES ARE IN PLACE, WILL CONTINUE WITH PATIENT PLAN OF CARE.
[2021-01-20 05:30] LABS: CALCIUM, SERUM 7.8 mg/dL (8.5-10.1); CREATININE 0.6 mg/dL (0.6-1.3); MAGNESIUM 2.1 mg/dL (1.8-2.4); PHOSPHORUS 3.4 mg/dL (2.5-4.9); POTASSIUM 4.2 mmol/L (3.5-5.1)
--- NOTE | 2021-01-20 06:50 | NUR ---
TELE/RN CLOSING NOTES: PATIENT IN BED RESTING COMFORTABLY. PATIENT IN NO S/SX OF ACUTE DISTRESS AT THIS TIME. NO SOB NOTED. PATIENT'S BREATHING IS EVEN AND UNLABORED. PATIENT IS ON ROOM AIR, TOLERATING WELL. PATIENT ON TELE SR 75. PT IS AMBULATORY. PATIENT ON SOFT DIET; TOLERATES WELL. NOTED IV SITES ON R HAND #20 AND L HAND #20, BOTH PATENT, INTACT AND FLUSHING WELL. SAFETY MEASURES HAVE BEEN PROVIDED AND IMPLEMENTED. HEAD OF BED ELEVATED. BED IS LOCKED, IN LOWEST POSITION AND SIDE RAILS UP. CALL LIGHT WITHIN REACH. WILL ENDORSE CARE TO DAY SHIFT NURSE.
[2021-01-20] MEDS: PANTOPRAZOLE 40 MG TABLET.DR PO SCH (07:30)
--- NOTE | 2021-01-20 08:00 | NUR ---
RN OPENING NOTE RECEIVED PATIENT IN BED, AO X 2-3, ABLE TO RESPONDS ALL STIMULI. SKIN IS WARM TO TOUCH KEEP CLEAN/DRY, INTACT IV SITE. RESPIRATORY EVEN AND UNLABORED IN ROOM AIR, NO DISTRESS OBSERVED. PATIENT CONFUSED AND ATTEMPTING LEAVE FACILITY WITHOUT MD ORDER. KEPT ELEVATED HOB FOR ENSURE AIRWAY AND ASPIRATION PRECAUTION, ALSO LOWEST BED POSITION FOE SAFETY. CALL LIGHT WITHIN REACH, WILL CONTINUE TO MONITOR.
[2021-01-20] MEDS: FAMOTIDINE (20 MG) 20 MG TABLET PO SCH (08:51)
[2021-01-20] MEDS: CARBIDOPA/LEVODOPA 25/100 MG 1 UDTAB PO SCH ×2 (08:52→12:43)
[2021-01-20] MEDS: MONTELUKAST SODIUM (10MG) 10 MG TABLET PO SCH (08:52)
[2021-01-20] MEDS: MEMANTINE HCL 5 MG TABLET PO SCH (08:52)
[2021-01-20] MEDS: LORATADINE 10 MG TABLET PO SCH (08:52)
[2021-01-20] MEDS: FLUOXETINE HCL 20 MG CAPSULE PO SCH (08:52)
--- NOTE | 2021-01-20 12:56 | NUR ---
PATIENT DISCHARGE TO HOME, GIVEN DISCHARGE INSTRUCTION INCLUDE CONTINUE TO HOME MEDICATION, FOLLOW UP PRIMARY MD IN 5-7 DAYS, AND [facility] SUPPLY WILL CONTACT ONCE CLEARED WITH INSURANCE. PATIENT IN STABLE CONDITION, LEFT FACILITY ACCOMPANIED BY FAMILY TO THE PRIVATE CAR.
== END 2021-01-20 13:38 | disposition home or self-care (01) | DRG 189 ==
LOC: ER 21:10 → ICU 23:00 → TELE 01-20 04:46 → MED 01-20 08:49
PROVIDERS: ADMIT Nurse Practitioner Acute Care
DX: J96.01 Acute respiratory failure with hypoxia (principal); K85.90 Acute pancreatitis without necrosis or infection, unspecified; N17.0 Acute kidney failure with tubular necrosis; G93.41 Metabolic encephalopathy; J45.901 Unspecified asthma with (acute) exacerbation; T39.395A Adverse effect of other nonsteroidal anti-inflammatory drugs [NSAID], initial encounter; J96.02 Acute respiratory failure with hypercapnia; Y92.039 Unspecified place in apartment as the place of occurrence of the external cause; F02.80 Dementia in other diseases classified elsewhere, unspecified severity, without behavioral disturbance, psychotic disturbance, mood disturbance, and anxiety; G30.9 Alzheimer's disease, unspecified; G20 Parkinson's disease; K21.9 Gastro-esophageal reflux disease without esophagitis; Z90.49 Acquired absence of other specified parts of digestive tract; Z90.710 Acquired absence of both cervix and uterus; Z79.899 Other long term (current) drug therapy; Z88.6 Allergy status to analgesic agent; Z88.5 Allergy status to narcotic agent; Z88.8 Allergy status to other drugs, medicaments and biological substances; F32.9 Major depressive disorder, single episode, unspecified; I70.0 Atherosclerosis of aorta; I10 Essential (primary) hypertension; Y92.009 Unspecified place in unspecified non-institutional (private) residence as the place of occurrence of the external cause
CPT/HCPCS: 36415; 36600; 71045-TC; 80048-TC; 80053-TC; 80061-TC; 82803-TC; 83735-TC; 84100-TC; 84443-TC; 84484-TC; 85025-TC; 85730-TC; 94799-TC; 99082-TC; C9803; G0378; J0171; J1200; J1650; J2930; J3475; J3490; J7030; J7050

== ENCOUNTER 2021-01-29 21:51 | Inpatient (IN) | payer MEDICARE, OTHER ==
[~2021-01-29] VITALS: Ht 160 cm; Wt 55.8 kg
--- NOTE | 2021-01-29 21:56 | NUR ---
PT AAOX4. BIBRA FROM HOME C/O HAD 10/10 CP AT HOME. WHEN TRIAGED, PT DENIES HAVING CP. PLACED IN BED 12 ON ASSISTANT PROFESSOR AND PULSE OX. VSS. NO ACUTE DISTRESS NOTED. AWAITING ER MD FOR EVAL AND ORDERS.
[2021-01-29] MEDS ORDERED: IV NS 0.9% 500 ML BAG IV ONE (22:30)
[2021-01-29 23:02] LABS: BASOPHILS % (AUTO) 0.3 % (0.0-2.0); EOSINOPHILS % (AUTO) 2.8 % (0.0-6.0); HEMATOCRIT 37 % (33-45); HEMOGLOBIN 12.4 g/dL (11.5-14.8); LYMPHOCYTES # (AUTO) 1.6 /CMM (0.8-4.8); LYMPHOCYTES % (AUTO) 25.7 % (20.0-44.0); MEAN CORPUSCULAR HGB CONC 34 g/dl (31.0-36.0); MEAN CORPUSCULAR VOLUME 88 fL (82-100); MONOCYTES # (AUTO) 0.4 /CMM (0.1-1.30); MONOCYTES % (AUTO) 7.1 % (2.0-12.0); NEUTROPHILS % (AUTO) 64.1 % (43.0-81.0); PLATELET COUNT (AUTO) 138 /CMM (150-450); RED BLOOD CELL COUNT(AUTO) 4.16 MIL/uL (4.0-5.2); WHITE BLOOD COUNT (AUTO) 6.3 K/uL (4.3-11.0)
[2021-01-29 23:13] LABS: CALCIUM, SERUM 7.6 mg/dL (8.5-10.1); CARBON DIOXIDE 27 mmol/L (21-32); CHLORIDE 108 mmol/L (98-107); CREATININE 0.6 mg/dL (0.6-1.3); GLUCOSE 128 mg/dL (74-106); POTASSIUM 4.1 mmol/L (3.5-5.1); SODIUM SERUM 143 mmol/L (136-145); UREA NITROGEN, BLOOD 28 mg/dL (7-18)
[2021-01-29 23:25] LABS: ALANINE AMINOTRANSFERASE 12 U/L (12-78); ALBUMIN 2.9 g/dL (3.4-5.0); ALKALINE PHOSPHATASE 80 U/L (46-116); ASPARTATE AMINOTRANSFERASE 15 U/L (15-37); BILIRUBIN,DIRECT 0.1 mg/dL (0.0-0.2); BILIRUBIN,TOTAL 0.2 mg/dL (0.2-1.0); NT-PRO BNP 113 pg/mL (0-125); TOTAL PROTEIN, SERUM 6.1 g/dL (6.4-8.2)
--- NOTE | 2021-01-29 23:38 | NUR ---
RESTING COMFORTABLY. AWAKE IN BED, VSS.
--- NOTE | 2021-01-30 00:07 | NUR ---
TERRYID SWABBED, SENT TO LAB.
--- NOTE | 2021-01-30 00:08 | NUR ---
PT AWARE OF ADMISSION. VSS.
--- NOTE | 2021-01-30 00:55 | NUR ---
REPORT GIVEN TO OLGA LIDIA WYNN FOR JAY
[2021-01-30] MEDS ORDERED: ONDANSETRON HCL/PF 4 MG/2 ML VIAL IVP PRN (01:00)
[2021-01-30] MEDS ORDERED: MAG HYDROX/AL HYDROX/SIMETH 30 ML UDC PO PRN (01:00)
[2021-01-30] MEDS ORDERED: FLUTICASONE/VILANTEROL 1 EACH BLST.W.DEV IH PRN (01:00)
[2021-01-30] MEDS ORDERED: MAGNESIUM HYDROXIDE 30 ML UDC PO PRN (01:00)
[2021-01-30] MEDS ORDERED: ZOLPIDEM TARTRATE 5 MG TABLET PO PRN (01:00)
[2021-01-30] MEDS ORDERED: ACETAMINOPHEN 325 MG TABLET PO PRN (01:00)
[2021-01-30] MEDS ORDERED: Z GUARD REMEDY 2 OZ OINT TP PRN (01:00)
[2021-01-30] MEDS ORDERED: HYDROCODONE/APAP 5/325MG TABLET PO PRN (01:00)
[2021-01-30] MEDS ORDERED: ALBUTEROL FS 2.5 MG/3 ML VIAL.NEB NEB PRN (02:00)
--- NOTE | 2021-01-30 02:20 | NUR ---
LIFESTYLE BLOCK FARMER: ADMISSION 80 y/o female A/O x4. Skin checked done, left face with dry scab, no pressure injury noted. Oriented to room, unit, staff. Patient no c/o chest pain, Sinus rhythm in the Tele monitor. Maintained safety.
[2021-01-30 02:59] VITALS: BP 142/72
[2021-01-30 04:21] VITALS: BP 128/54
--- NOTE | 2021-01-30 06:15 | NUR ---
SECURITY OPERATIONS ANALYST: END OF SHIFT REPORT Patient in bed. Sinus [place] in the Tele monitor HR 54. No c/o chest pain in the last 4 hours of admission. Tolerating room air, denies SOB. No other complaints. Will endorse to oncoming RN.
--- NOTE | 2021-01-30 07:20 | NUR ---
PHARMACY SALESPERSON OPENING NOTE PATIENT RECEIVED ALERT AND ORIENTED X 4 ON BED. PATIENT ON ROOM AIR WITH NON LABORED AND EVEN/ REGULAR BREATHING, WITH NO SIGNS OF RESPIRATORY DISTRESS. PATIENT WITH IV ACCESS ON LEFT FOREARM G#20, PATENT AND INTACT. PATIENT AMBULATORY WITH NO ASSISTIVE DEVICES. SAFETY MEASURES ENSURED WITH SIDERAILS UP, BEDS LOCKED AND AT LOWEST POSITION. CALL LIGHT AND TABLE WITHIN REACH AT ALL TIMES. WILL CONTINUE TO MONITOR PATIENT.
--- NOTE | 2021-01-30 07:50 | NUR ---
SEWING TECHNIQUES DEMONSTRATOR NOTES PATIENT SEEN BY DR. LIMA.
[2021-01-30] MEDS: CARBIDOPA/LEVODOPA 25/100 MG 1 UDTAB PO SCH ×3 (08:52→17:36)
[2021-01-30] MEDS: FAMOTIDINE (20 MG) 20 MG TABLET PO SCH ×2 (08:52→17:36)
[2021-01-30] MEDS ORDERED: FLUOXETINE HCL 20 MG CAPSULE PO SCH (09:00)
[2021-01-30] MEDS ORDERED: LORATADINE 10 MG TABLET PO SCH (09:00)
[2021-01-30] MEDS ORDERED: OMEPRAZOLE 20 MG CAPSULE.DR PO SCH (09:00)
[2021-01-30] MEDS ORDERED: MONTELUKAST SODIUM (10MG) 10 MG TABLET PO SCH (09:00)
[2021-01-30] MEDS ORDERED: Medication Not On Formulary EA (Memantine HCl (Memantine HCl ER) 28 MG) PO SCH (09:00)
[2021-01-30] MEDS ORDERED: predniSONE 50 MG TABLET PO SCH ×2 (09:00)
[2021-01-30] MEDS ORDERED: NITROGLYCERIN 0.6 MG/HR PATCH.TD24 TD SCH (09:00)
--- NOTE | 2021-01-30 09:45 | NUR ---
HOME HEALTH RN NOTE PATIENT FOR CT ANGIO ORDERED BY MD AND EXPLAINED BY MD TO PATIENT. CONSENT SECURED AND ATTACHED TO CHART. DAUGHTER FRAN UPDATED PER REQUEST AND APPROVED OF PROCEDURE AND VERBALIZED UNDERSTANDING AND APPRECIATION. WILL CONTINUE TO MONITOR PATIENT.
[2021-01-30] MEDS ORDERED: NITROGLYCERIN 0.4 MG/TAB BOTTLE SL ONE (12:00)
[2021-01-30] MEDS ORDERED: METOPROLOL TARTRATE INJ 5 MG/5 ML AMPUL IVP PRN (12:00)
[2021-01-30] MEDS ORDERED: IV NS 0.9% 250 ML IV ONE (12:30)
[2021-01-30] MEDS ORDERED: IOHEXOL-350 100 ML VIAL IV ONE (12:30)
[2021-01-30] MEDS ORDERED: CT SWABBABLE VALVE TRANS SET 1 EA INFUS.SET MC ONE (12:30)
--- NOTE | 2021-01-30 12:30 | NUR ---
PATIENT ACCOUNTS SPECIALIST NOTES PATIENT PICKED UP BY VACUUM EXTRACTOR OPERATOR FOR SCHEDULED PROCEDURE.
[2021-01-30] MEDS ORDERED: METOPROLOL TARTRATE INJ 5 MG/5 ML AMPUL ONE (12:31)
[2021-01-30] MEDS ORDERED: NITROGLYCERIN 0.4 MG/TAB BOTTLE ONE (12:31)
[2021-01-30 12:55] VITALS: BP 132/58
--- NOTE | 2021-01-30 13:00 | NUR ---
CTA PROCEDURE WELL TOLERATED BY THE PT.V/S STABLE, KEPT RESTED AND COMFORTABLE. REPORT GIVEN TO TIANNA RODRIGUEZ FOR JAY.
--- NOTE | 2021-01-30 13:10 | NUR ---
VALIDATION ANALYST NOTE PATIENT CAME BACK FROM PROCEDURE WITH NO SIGNS OF DISTRESS. PROCEDURE TOLERATED WELL AND IS AMBULATORY AND DOES NOT COMPLAIN OF PAIN OR DISCOMFORT. WILL CONTINUE TO MONITOR PATIENT.
--- NOTE | 2021-01-30 17:10 | NUR ---
HOUSE BUILDER NOTE CT RESULT RELAYED TO DR. LIMA AND DR. DONG. WITH ORDER TO DISCHARGE PATIENT. PATIENT NOTIFIED OF MD ORDERS AND HEALTH TEACHING DONE REGARDING MEDICATIONS, DISCHARGE INSTRUCTIONS, PATIENT VERBALIZED UNDERSTANDING AND APPRECIATION. IV ACCESS REMOVED PER PATIENT'S REQUEST AND COVERED WITH BAND AID WITH NO SIGNS OF BLEEDING NOTED. WILL WAIT FOR PATIENT'S FAMILY TO PICK HER UP.
--- NOTE | 2021-01-30 18:20 | NUR ---
LEAK INSPECTOR NOTE PATIENT PICKED UP BY AND DAUGHTER FRAN IN STABLE CONDITION WITH HEALTH INSTRUCTIONS ADN DISCHARGE PAPERS IN HAND.
[2021-01-30] MEDS ORDERED: ATORVASTATIN 10 MG TABLET PO SCH (22:00)
[2021-01-30] MEDS ORDERED: DONEPEZIL 5 MG TABLET PO SCH (22:00)
[2021-01-31] MEDS ORDERED: PANTOPRAZOLE 40 MG TABLET.DR PO SCH (07:30)
== END 2021-01-30 18:55 | disposition home or self-care (01) | DRG 391 ==
LOC: ER 21:51 → TELE 01-30 00:53
DX: K21.9 Gastro-esophageal reflux disease without esophagitis (principal); J96.01 Acute respiratory failure with hypoxia; N17.0 Acute kidney failure with tubular necrosis; J96.02 Acute respiratory failure with hypercapnia; F02.80 Dementia in other diseases classified elsewhere, unspecified severity, without behavioral disturbance, psychotic disturbance, mood disturbance, and anxiety; G20 Parkinson's disease; G30.9 Alzheimer's disease, unspecified; I10 Essential (primary) hypertension; J45.909 Unspecified asthma, uncomplicated; Z88.6 Allergy status to analgesic agent; Z88.5 Allergy status to narcotic agent; Z88.8 Allergy status to other drugs, medicaments and biological substances; Z91.013 Allergy to seafood; Z79.899 Other long term (current) drug therapy; Z79.51 Long term (current) use of inhaled steroids; Z90.49 Acquired absence of other specified parts of digestive tract; Z90.710 Acquired absence of both cervix and uterus; Z82.49 Family history of ischemic heart disease and other diseases of the circulatory system; F32.9 Major depressive disorder, single episode, unspecified; I70.0 Atherosclerosis of aorta; Z20.822 Contact with and (suspected) exposure to COVID-19
CPT/HCPCS: 36415; 71045-TC; 75574; 80048-TC; 80076-TC; 83880; 84484-TC; 85025-TC; 85730-TC; 87081-TC; 93307-TC; C9803; G0378; J3490; J7040; J7050; Q9967

== ENCOUNTER 2021-03-08 22:14 | Inpatient (IN) | payer MEDICARE, OTHER ==
[~2021-03-08] VITALS: Ht 160 cm; Wt 55.3 kg
--- NOTE | 2021-03-08 22:25 | NUR ---
PATIENT [id number] FROM HOME FOR MID ABD PAIN FOR THE PAST 4 HOURS. PATIENT HAS A HX OF PANCREATITIS. PATIENT IS A/O X 4, RR EVEN AND UNLABORED, NO SIGNS OF SOB NOTED. 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
--- NOTE | 2021-03-08 22:35 | NUR ---
URINE COLLECTED AND SENT TO LAB
[2021-03-08] MEDS ORDERED: IV NS 0.9% 500 ML BAG IV ONE (23:00)
[2021-03-08] MEDS ORDERED: ONDANSETRON HCL/PF 4 MG/2 ML VIAL IVP ONE (23:00)
[2021-03-08 23:05] LABS: BILIRUBIN,URINE Negative (NEGATIVE); COLOR,URINE YELLOW (YELLOW); LEUKOCYTE ESTERASE ,URINE Small (NEGATIVE); NITRITE, URINE Negative (NEGATIVE); PROTEIN,URINE Negative (NEGATIVE); UGLUCOSE Negative (NEGATIVE)
[2021-03-08 23:08] LABS: BACTERIA,URINE 1+ /HPF (None Seen); RBC,URINE NONE SEEN /HPF (0-2); SQUAMOUS EPITHELIAL CELL,UR Few /HPF (None Seen)
[2021-03-08] MEDS ORDERED: ONDANSETRON HCL/PF 4 MG/2 ML VIAL ONE (23:42)
[2021-03-08 23:43] LABS: BASOPHILS % (AUTO) 0.2 % (0.0-2.0); EOSINOPHILS % (AUTO) 5.2 % (0.0-6.0); HEMATOCRIT 40 % (33-45); HEMOGLOBIN 13.6 g/dL (11.5-14.8); LYMPHOCYTES # (AUTO) 1.5 K/uL (0.8-4.8); LYMPHOCYTES % (AUTO) 21.3 % (20.0-44.0); MEAN CORPUSCULAR HGB CONC 34 g/dl (31.0-36.0); MEAN CORPUSCULAR VOLUME 88 fL (82-100); MONOCYTES # (AUTO) 0.6 K/uL (0.1-1.30); MONOCYTES % (AUTO) 8.3 % (2.0-12.0); NEUTROPHILS # (AUTO) 4.6 K/uL (1.8-8.9); PLATELET COUNT (AUTO) 128 K/uL (150-450); RED BLOOD CELL COUNT(AUTO) 4.55 MIL/uL (4.0-5.2)
[2021-03-08 23:56] LABS: CARBON DIOXIDE 26 mmol/L (21-32); CHLORIDE 106 mmol/L (98-107); CREATININE 0.6 mg/dL (0.6-1.3); GLUCOSE 100 mg/dL (74-106); POTASSIUM 3.9 mmol/L (3.5-5.1); SODIUM SERUM 140 mmol/L (136-145); UREA NITROGEN, BLOOD 23 mg/dL (7-18)
[2021-03-09 00:02] LABS: ALANINE AMINOTRANSFERASE 26 U/L (12-78); ALKALINE PHOSPHATASE 82 U/L (46-116); ASPARTATE AMINOTRANSFERASE 122 U/L (15-37); BILIRUBIN,DIRECT 0.3 mg/dL (0.0-0.2); BILIRUBIN,TOTAL 0.7 mg/dL (0.2-1.0); LIPASE 849 U/L (73-393); TOTAL PROTEIN, SERUM 6.1 g/dL (6.4-8.2)
--- NOTE | 2021-03-09 00:23 | NUR ---
PATIENT RETURNED FROM CT
[2021-03-09] MEDS ORDERED: CEFTRIAXONE 1GM BAG (ER ONLY) 50 ML IV ONE (00:24)
[2021-03-09] MEDS ORDERED: CEFTRIAXONE 1GM BAG (ER ONLY) 1 GM/50 ML PIGGYBACK IV ONE (00:30)
[2021-03-09] MEDS ORDERED: MAGNESIUM HYDROXIDE 30 ML UDC PO PRN (01:30)
[2021-03-09] MEDS ORDERED: MAG HYDROX/AL HYDROX/SIMETH 30 ML UDC PO PRN (01:30)
[2021-03-09] MEDS ORDERED: ACETAMINOPHEN 325 MG TABLET PO PRN (01:30)
[2021-03-09] MEDS ORDERED: MORPHINE SULFATE INJ 2 MG/ML DISP.SYRIN IV PRN (01:30)
[2021-03-09] MEDS ORDERED: Z GUARD REMEDY 2 OZ OINT TP PRN (01:30)
[2021-03-09] MEDS ORDERED: IV D5/0.45 NACL 1,000 ML IV PRN (01:30)
[2021-03-09] MEDS ORDERED: ONDANSETRON HCL/PF 4 MG/2 ML VIAL IVP PRN (01:30)
[2021-03-09] MEDS ORDERED: ALBUTEROL FS 2.5 MG/3 ML VIAL.NEB NEB PRN (02:00)
[2021-03-09 05:08] LABS: BASOPHILS % (AUTO) 0.3 % (0.0-2.0); EOSINOPHILS % (AUTO) 4.6 % (0.0-6.0); HEMATOCRIT 38 % (33-45); HEMOGLOBIN 13.1 g/dL (11.5-14.8); LYMPHOCYTES # (AUTO) 0.9 K/uL (0.8-4.8); LYMPHOCYTES % (AUTO) 18.2 % (20.0-44.0); MEAN CORPUSCULAR HGB CONC 34 g/dl (31.0-36.0); MEAN CORPUSCULAR VOLUME 88 fL (82-100); MONOCYTES # (AUTO) 0.5 K/uL (0.1-1.30); MONOCYTES % (AUTO) 10.1 % (2.0-12.0); NEUTROPHILS # (AUTO) 3.3 K/uL (1.8-8.9); NEUTROPHILS % (AUTO) 66.8 % (43.0-81.0); PLATELET COUNT (AUTO) 113 K/uL (150-450); RED BLOOD CELL COUNT(AUTO) 4.34 MIL/uL (4.0-5.2); WHITE BLOOD COUNT (AUTO) 4.9 K/uL (4.3-11.0)
[2021-03-09 05:27] LABS: CALCIUM, SERUM 7.5 mg/dL (8.5-10.1); CREATININE 0.6 mg/dL (0.6-1.3)
[2021-03-09 05:34] LABS: ALBUMIN 2.9 g/dL (3.4-5.0); BILIRUBIN,DIRECT 0.6 mg/dL (0.0-0.2); MAGNESIUM 1.8 mg/dL (1.8-2.4); PHOSPHORUS 3.6 mg/dL (2.5-4.9); TOTAL PROTEIN, SERUM 5.8 g/dL (6.4-8.2)
[2021-03-09 05:40] LABS: THYROID STIMULATING HORMONE 0.569 uIU/mL (0.358-3.74)
--- NOTE | 2021-03-09 06:30 | NUR ---
PATIENT AMBULATE TO RESTROOM BYSELF, VSS, TOLERATING FLUID PO INTAKE.
--- NOTE | 2021-03-09 07:16 | NUR ---
room 307-2
--- NOTE | 2021-03-09 07:22 | NUR ---
REPORT GIVEN TO TIANNA HOLT
--- NOTE | 2021-03-09 07:50 | NUR ---
Patient transferred to room 307-2 in stable condition.
[2021-03-09 08:00] VITALS: BP 123/74
--- NOTE | 2021-03-09 08:10 | NUR ---
MS AUTOMOBILE BODY REPAIR CHIEF NOTE RECEIVED PATIENT FROM ER. PATIENT CAME FROM HOME COMPLAINING OF ABDOMINAL PAIN. A/O X4. STABLE ON ROOM AIR - NO SOB NOTED, NO DISTRESS/DISCOMFORT NOTED. PATIENT IS AMBULATORY. PATIENT STATES NO PAIN AT THIS TIME. IV ACCESS TO RIGHT HAND #22 - RUNNING D51/2NS @ 75ML/HR. PATIENT IS NPO FOR NOW. SAFETY MEASURES IMPLEMENTED. CALL LIGHT WITHIN REACH. WILL CONTINUE TO MONITOR.
[2021-03-09] MEDS ORDERED: PANTOPRAZOLE 40 MG VIAL IV SCH (09:00)
[2021-03-09] MEDS: LORATADINE 10 MG TABLET PO SCH (09:11)
[2021-03-09] MEDS: FLUOXETINE HCL 20 MG CAPSULE PO SCH (09:11)
[2021-03-09] MEDS: FAMOTIDINE (20 MG) 20 MG TABLET PO SCH ×2 (09:11→16:12)
[2021-03-09] MEDS: MONTELUKAST SODIUM (10MG) 10 MG TABLET PO SCH (09:11)
[2021-03-09] MEDS: MEMANTINE HCL 5 MG TABLET PO SCH ×2 (09:12→16:12)
[2021-03-09] MEDS: predniSONE 20 MG TABLET PO SCH (09:12)
[2021-03-09] MEDS: CARBIDOPA/LEVODOPA 25/100 MG 1 UDTAB PO SCH ×3 (09:12→16:12)
[2021-03-09] MEDS: PANTOPRAZOLE 40 MG TABLET.DR PO SCH (09:32)
[2021-03-09 16:00] VITALS: BP 144/89
--- NOTE | 2021-03-09 19:16 | NUR ---
MS RN CLOSING NOTE PATIENT CURRENTLY LYING IN BED, RESTING. EASY TO AROUSE. A/O X4. NO SOB NOTED. NO DISTRESS/DISCOMFORT NOTED. PATIENT STATES NO PAIN AT THIS TIME. DIET ADVANCED TO CLEAR LIQUID. IV ACCESS TO RIGHT HAND #22 - RUNNING D51/2NS @ 75ML/HR. SAFETY MEASURES IMPLEMENTED. CALL LIGHT WITHIN REACH. WILL ENDORSE TO BATCH ROLLER OPERATOR NURSE FOR JAY.
--- NOTE | 2021-03-09 19:39 | NUR ---
MS RN OPENING NOTE PATIENT A/OX4; IN ROOM AND ABLE TO MAKE NEEDS KNOWN. TOLERATING ROOM AIR WELL WITH NO SOB. DENIES PAIN OR DISCOMFORT AT THIS TIME. R HAND #22G ND5 1/2NS @75ML/HR. SAFETY MEASURES IN PLACE: BED IN LOWEST LOCKED POSITION, SIDE RAILS UPX2, CALL LIGHT WITHIN EASY REACH, BED ALARMS ON. PATIENT IN STABLE CONDITION, WILL CONTINUE PLAN OF CARE.
[2021-03-09 20:00] VITALS: BP 115/61
[2021-03-09] MEDS: DONEPEZIL 5 MG TABLET PO SCH (21:41)
[2021-03-09] MEDS: CEFTRIAXONE 1 G in IV D5W 50 ML IV SCH (21:41)
[2021-03-09] MEDS: ATORVASTATIN 10 MG TABLET PO SCH (21:41)
--- NOTE | 2021-03-10 06:54 | NUR ---
MS RN OPENING NOTE PATIENT A/OX4; IN ROOM AND ABLE TO MAKE NEEDS KNOWN. TOLERATING ROOM AIR WELL WITH NO SOB. DENIES PAIN OR DISCOMFORT AT THIS TIME. LFA #22G S/L; PATENT AND INTACT. SAFETY MEASURES IN PLACE: BED IN LOWEST LOCKED POSITION, SIDE RAILS UPX2, CALL LIGHT WITHIN EASY REACH, BED ALARMS ON. PATIENT IN STABLE CONDITION, WILL ENDORSE PLAN OF CARE TO ONCOMING MORNING RN.
--- NOTE | 2021-03-10 07:18 | NUR ---
MS RN OPENING NOTE RECEIVED PATIENT RESTING IN BED. PATIENT IS A/OX4; PATIENT IS BREATHING EVENLY AND NONLABORED, TOLERATING ROOM AIR WELL WITH NO SOB. DENIES PAIN OR DISCOMFORT AT THIS TIME. IV ACCESS ON R HAND #22G ND5 1/2NS @75ML/HR, PATENT AND INTACT. SAFETY MEASURES IN PLACE: BED IN LOWEST LOCKED POSITION, SIDE RAILS UPX2, CALL LIGHT WITHIN EASY REACH, BED ALARMS ON. PATIENT IN STABLE CONDITION, WILL CONTINUE TO MONITOR
[2021-03-10 08:00] VITALS: BP 141/92
[2021-03-10] MEDS: MEMANTINE HCL 5 MG TABLET PO SCH ×2 (08:08→16:01)
[2021-03-10] MEDS: PANTOPRAZOLE 40 MG TABLET.DR PO SCH (08:08)
[2021-03-10] MEDS: FAMOTIDINE (20 MG) 20 MG TABLET PO SCH ×2 (08:09→16:01)
[2021-03-10] MEDS: FLUOXETINE HCL 20 MG CAPSULE PO SCH (08:09)
[2021-03-10] MEDS: CARBIDOPA/LEVODOPA 25/100 MG 1 UDTAB PO SCH ×3 (08:09→16:01)
[2021-03-10] MEDS: LORATADINE 10 MG TABLET PO SCH (08:09)
[2021-03-10] MEDS: predniSONE 20 MG TABLET PO SCH (08:09)
[2021-03-10] MEDS: MONTELUKAST SODIUM (10MG) 10 MG TABLET PO SCH (08:09)
[2021-03-10 08:18] LABS: BASOPHILS % (AUTO) 0.3 % (0.0-2.0); EOSINOPHILS % (AUTO) 4.3 % (0.0-6.0); HEMATOCRIT 39 % (33-45); HEMOGLOBIN 13.5 g/dL (11.5-14.8); LYMPHOCYTES # (AUTO) 1.6 K/uL (0.8-4.8); LYMPHOCYTES % (AUTO) 25.2 % (20.0-44.0); MEAN CORPUSCULAR HGB CONC 34 g/dl (31.0-36.0); MEAN CORPUSCULAR VOLUME 88 fL (82-100); MONOCYTES # (AUTO) 0.6 K/uL (0.1-1.30); MONOCYTES % (AUTO) 9.3 % (2.0-12.0); NEUTROPHILS # (AUTO) 3.8 K/uL (1.8-8.9); NEUTROPHILS % (AUTO) 60.9 % (43.0-81.0); PLATELET COUNT (AUTO) 126 K/uL (150-450); RED BLOOD CELL COUNT(AUTO) 4.48 MIL/uL (4.0-5.2); WHITE BLOOD COUNT (AUTO) 6.2 K/uL (4.3-11.0)
[2021-03-10 10:48] LABS: ALBUMIN 3.2 g/dL (3.4-5.0); BILIRUBIN,TOTAL 0.6 mg/dL (0.2-1.0); CALCIUM, SERUM 7.4 mg/dL (8.5-10.1); CREATININE 0.7 mg/dL (0.6-1.3); MAGNESIUM 1.8 mg/dL (1.8-2.4); PHOSPHORUS 2.7 mg/dL (2.5-4.9); POTASSIUM 3.4 mmol/L (3.5-5.1); TOTAL PROTEIN, SERUM 6.3 g/dL (6.4-8.2)
[2021-03-10] MEDS ORDERED: POTASSIUM CHLORIDE 20 MEQ TAB.PRT.SR PO ONE (12:30)
[2021-03-10 16:00] VITALS: BP 140/79
--- NOTE | 2021-03-10 18:25 | NUR ---
MS RN CLOSING NOTE PATIENT RESTING IN BED. PATIENT IS A/OX4; PATIENT IS BREATHING EVENLY AND NONLABORED, TOLERATING ROOM AIR WELL WITH NO SOB. DENIES PAIN OR DISCOMFORT AT THIS TIME. IV ACCESS ON R HAND #22G PATENT AND INTACT, HAS ORDER FOR D5 1/2NS @75ML/HR, BUT PATIENT ASKED TO BE OFF IV TILL LATER THIS EVENING. SAFETY MEASURES IN PLACE: BED IN LOWEST LOCKED POSITION, SIDE RAILS UPX2, CALL LIGHT WITHIN EASY REACH, BED ALARMS ON. PATIENT IN STABLE CONDITION, WILL ENDORSE TO ONCOMING SHIFT
--- NOTE | 2021-03-10 19:41 | NUR ---
MS RN CLOSING NOTE PATIENT A/OX4; IN ROOM AND ABLE TO MAKE NEEDS KNOWN. TOLERATING ROOM AIR WELL WITH NO SOB. DENIES PAIN OR DISCOMFORT AT THIS TIME. LFA #22G S/L; PATENT AND INTACT. SAFETY MEASURES IN PLACE: BED IN LOWEST LOCKED POSITION, SIDE RAILS UPX2, CALL LIGHT WITHIN EASY REACH, BED ALARMS ON. PATIENT IN STABLE CONDITION, WILL CONTINUE PLAN OF CARE.
--- NOTE | 2021-03-10 19:45 | NUR ---
MS RN OPENING NOTE PATIENT A/OX4; IN ROOM AND ABLE TO MAKE NEEDS KNOWN. TOLERATING ROOM AIR WELL WITH NO SOB. DENIES PAIN OR DISCOMFORT AT THIS TIME. LFA #22G S/L; PATENT AND INTACT. SAFETY MEASURES IN PLACE: BED IN LOWEST LOCKED POSITION, SIDE RAILS UPX2, CALL LIGHT WITHIN EASY REACH, BED ALARMS ON. PATIENT IN STABLE CONDITION, WILL CONTINUE PLAN OF CARE.
[2021-03-10 20:00] VITALS: BP 142/85
[2021-03-10] MEDS: DONEPEZIL 5 MG TABLET PO SCH (22:12)
[2021-03-10] MEDS: ATORVASTATIN 10 MG TABLET PO SCH (22:12)
[2021-03-10] MEDS: CEFTRIAXONE 1 G in IV D5W 50 ML IV SCH (22:13)
[2021-03-11 06:25] LABS: BASOPHILS % (AUTO) 0.3 % (0.0-2.0); EOSINOPHILS % (AUTO) 3.4 % (0.0-6.0); HEMATOCRIT 43 % (33-45); HEMOGLOBIN 14.6 g/dL (11.5-14.8); LYMPHOCYTES # (AUTO) 1.9 K/uL (0.8-4.8); LYMPHOCYTES % (AUTO) 23.1 % (20.0-44.0); MEAN CORPUSCULAR HGB CONC 34 g/dl (31.0-36.0); MEAN CORPUSCULAR VOLUME 89 fL (82-100); MONOCYTES # (AUTO) 0.6 K/uL (0.1-1.30); NEUTROPHILS # (AUTO) 5.5 K/uL (1.8-8.9); NEUTROPHILS % (AUTO) 66.2 % (43.0-81.0); PLATELET COUNT (AUTO) 135 K/uL (150-450); RED BLOOD CELL COUNT(AUTO) 4.81 MIL/uL (4.0-5.2); WHITE BLOOD COUNT (AUTO) 8.2 K/uL (4.3-11.0)
--- NOTE | 2021-03-11 07:06 | NUR ---
MS RN CLOSING NOTE PATIENT A/OX4; IN HALLWAY AND ABLE TO MAKE NEEDS KNOWN. TOLERATING ROOM AIR WELL WITH NO SOB. DENIES PAIN OR DISCOMFORT AT THIS TIME. LFA #22G D5 1/2NS @ 75ML/HR; PATENT AND INTACT. SAFETY MEASURES IN PLACE: BED IN LOWEST LOCKED POSITION, SIDE RAILS UPX2, CALL LIGHT WITHIN EASY REACH, BED ALARMS ON. PATIENT IN STABLE CONDITION, ENDORSED PLAN OF CARE.
[2021-03-11 07:12] LABS: CALCIUM, SERUM 8.3 mg/dL (8.5-10.1); CREATININE 0.7 mg/dL (0.6-1.3); MAGNESIUM 2.1 mg/dL (1.8-2.4); PHOSPHORUS 2.6 mg/dL (2.5-4.9); POTASSIUM 3.6 mmol/L (3.5-5.1)
[2021-03-11 08:00] VITALS: BP 136/86
[2021-03-11] MEDS: MEMANTINE HCL 5 MG TABLET PO SCH (08:05)
[2021-03-11] MEDS: PANTOPRAZOLE 40 MG TABLET.DR PO SCH (08:05)
[2021-03-11] MEDS: LORATADINE 10 MG TABLET PO SCH (08:05)
[2021-03-11] MEDS: predniSONE 20 MG TABLET PO SCH (08:06)
[2021-03-11] MEDS: FLUOXETINE HCL 20 MG CAPSULE PO SCH (08:06)
[2021-03-11] MEDS: CARBIDOPA/LEVODOPA 25/100 MG 1 UDTAB PO SCH (08:06)
[2021-03-11] MEDS: MONTELUKAST SODIUM (10MG) 10 MG TABLET PO SCH (08:06)
[2021-03-11] MEDS: FAMOTIDINE (20 MG) 20 MG TABLET PO SCH (08:06)
--- NOTE | 2021-03-11 11:00 | NUR ---
RN AMA NOTE PATIENT WAS AMBULATING SAFELY IN THE [address]. VERBALIZED WANTING TO LEAVE NOW. PATIENT IS A/O X4 WITH THE POWER TO MAKE HER OWN DECISION. EXPLAINED THE RISK AND BENEFITS OF LEAVING AMA, PATIENT SIGNED AMA FORM. IV ACCESS WAS SAFELY REMOVED CATHETER TIP INTACT WITH PRESSURE DRESSING. PATIENT IS IN STABLE CONDITION AND DAUGHTER CAME TO PICK THE PATIENT UP. PATIENT AMBULATED TO PRIVATE CAR AND LEFT IN STABLE CONDITION.
== END 2021-03-11 11:58 | disposition left against medical advice (07) | DRG 439 ==
LOC: ER 22:16 → MED 03-09 07:48
PROVIDERS: ADMIT Hospitalist; ATTEND Hospitalist
DX: K85.90 Acute pancreatitis without necrosis or infection, unspecified (principal); E44.0 Moderate protein-calorie malnutrition; N39.0 Urinary tract infection, site not specified; I25.10 Atherosclerotic heart disease of native coronary artery without angina pectoris; G20 Parkinson's disease; G30.9 Alzheimer's disease, unspecified; F02.80 Dementia in other diseases classified elsewhere, unspecified severity, without behavioral disturbance, psychotic disturbance, mood disturbance, and anxiety; K21.9 Gastro-esophageal reflux disease without esophagitis; Z20.822 Contact with and (suspected) exposure to COVID-19; I10 Essential (primary) hypertension; E78.5 Hyperlipidemia, unspecified; Z90.49 Acquired absence of other specified parts of digestive tract; Z90.710 Acquired absence of both cervix and uterus; Z79.899 Other long term (current) drug therapy; Z88.8 Allergy status to other drugs, medicaments and biological substances; Z88.6 Allergy status to analgesic agent; Z88.5 Allergy status to narcotic agent; Z91.013 Allergy to seafood; Z79.51 Long term (current) use of inhaled steroids; J45.909 Unspecified asthma, uncomplicated; F32.9 Major depressive disorder, single episode, unspecified; R79.89 Other specified abnormal findings of blood chemistry; K83.8 Other specified diseases of biliary tract; D69.6 Thrombocytopenia, unspecified
CPT/HCPCS: 36415; 71045-TC; 76705-TC; 80048-TC; 80053-TC; 80061-TC; 80076-TC; 81001; 82247-TC; 82248-TC; 83690-TC; 83735-TC; 84100-TC; 84443-TC; 84484-TC; 85025-TC; 85730-TC; 87081-TC; 87086-TC; C9803; G0378; J0696; J2405; J3490; J7060

== ENCOUNTER 2021-09-21 01:10 | Inpatient (IN) | payer MEDICARE, OTHER ==
[~2021-09-21] VITALS: Ht 160 cm; Wt 56.7 kg
[~2021-09-21 01:10] MED LIST changes: +AMYL1CAP58 PO; +CARB1TAB21 PO; +FLUT1BLS IH; +NITR1PAT64 TD; +OMEP40CA21 PO; +SUCR1ORA15 PO; +UBID200C36 PO
[2021-09-21] MEDS ORDERED: methylPREDNISolone SOD SUCC 125 MG/2ML VIAL ONE (01:20)
[2021-09-21] MEDS ORDERED: diphenhydrAMINE HCL 50 MG/ML VIAL ONE (01:20)
[2021-09-21] MEDS ORDERED: methylPREDNISolone SOD SUCC 125 MG/2ML VIAL IV ONE (01:30)
[2021-09-21] MEDS ORDERED: diphenhydrAMINE HCL 50 MG/ML VIAL IV ONE (01:30)
[2021-09-21] MEDS ORDERED: IV NS 0.9% 500 ML BAG IV ONE (01:30)
[2021-09-21 01:48] LABS: BASOPHILS % (AUTO) 0.2 % (0.0-2.0); EOSINOPHILS % (AUTO) 4.3 % (0.0-6.0); HEMATOCRIT 39 % (33-45); HEMOGLOBIN 13.2 g/dL (11.5-14.8); LYMPHOCYTES % (AUTO) 29.7 % (20.0-44.0); MEAN CORPUSCULAR HGB CONC 34 g/dl (31.0-36.0); MEAN CORPUSCULAR VOLUME 90 fL (82-100); MONOCYTES # (AUTO) 0.4 K/uL (0.1-1.30); MONOCYTES % (AUTO) 6.6 % (2.0-12.0); NEUTROPHILS # (AUTO) 3.9 K/uL (1.8-8.9); NEUTROPHILS % (AUTO) 59.2 % (43.0-81.0); PLATELET COUNT (AUTO) 183 K/uL (150-450); RED BLOOD CELL COUNT(AUTO) 4.34 MIL/uL (4.0-5.2); WHITE BLOOD COUNT (AUTO) 6.6 K/uL (4.3-11.0)
[2021-09-21 01:54] LABS: CALCIUM, SERUM 8.6 mg/dL (8.5-10.1); CARBON DIOXIDE 29 mmol/L (21-32); CHLORIDE 104 mmol/L (98-107); CREATININE 0.9 mg/dL (0.6-1.3); GLUCOSE 146 mg/dL (74-106); POTASSIUM 3.8 mmol/L (3.5-5.1); SODIUM SERUM 140 mmol/L (136-145); UREA NITROGEN, BLOOD 29 mg/dL (7-18)
[2021-09-21 02:08] LABS: ALANINE AMINOTRANSFERASE 21 U/L (12-78); ALBUMIN 3.4 g/dL (3.4-5.0); ALKALINE PHOSPHATASE 110 U/L (46-116); ASPARTATE AMINOTRANSFERASE 35 U/L (15-37); BILIRUBIN,DIRECT 0.3 mg/dL (0.0-0.2); BILIRUBIN,TOTAL 0.9 mg/dL (0.2-1.0); TOTAL PROTEIN, SERUM 6.4 g/dL (6.4-8.2)
[2021-09-21] MEDS ORDERED: FLUTICASONE/VILANTEROL 1 EACH BLST.W.DEV IH PRN (03:30)
[2021-09-21] MEDS ORDERED: Z GUARD REMEDY 4 OZ OINT TP PRN (03:30)
[2021-09-21] MEDS ORDERED: NITROGLYCERIN 0.4 MG/TAB BOTTLE SL PRN (03:30)
[2021-09-21] MEDS ORDERED: MAGNESIUM HYDROXIDE 30 ML UDC PO PRN (03:30)
[2021-09-21] MEDS ORDERED: MAG HYDROX/AL HYDROX/SIMETH 30 ML UDC PO PRN (03:30)
[2021-09-21] MEDS ORDERED: MORPHINE SULFATE INJ 2 MG/ML DISP.SYRIN IV PRN (03:30)
[2021-09-21] MEDS ORDERED: ACETAMINOPHEN 325 MG TABLET PO PRN (03:30)
[2021-09-21] MEDS ORDERED: ONDANSETRON HCL/PF 4 MG/2 ML VIAL IVP PRN (03:30)
[2021-09-21] MEDS ORDERED: SUCRALFATE 1 G/10 ML UDC ONE (07:41)
[2021-09-21] MEDS ORDERED: ENOXAPARIN SODIUM 40 MG/0.4 ML DISP.SYRIN SQ ONE (07:41)
[2021-09-21] MEDS ORDERED: MEMANTINE HCL 5 MG TABLET ONE (07:58)
[2021-09-21] MEDS ORDERED: LORATADINE 10 MG TABLET ONE (07:58)
[2021-09-21] MEDS: ENOXAPARIN SODIUM 40 MG/0.4 ML DISP.SYRIN SQ SCH (08:10)
[2021-09-21] MEDS: SUCRALFATE 1 G/10 ML UDC PO SCH (08:10)
[2021-09-21] MEDS ORDERED: ALBUTEROL FS 2.5 MG/3 ML VIAL.NEB NEB PRN (08:30)
[2021-09-21] MEDS ORDERED: predniSONE 50 MG TABLET PO SCH (09:00)
[2021-09-21] MEDS: NITROGLYCERIN 0.1 MG/HR PATCH.TD24 TD SCH (09:00)
[2021-09-21] MEDS: FLUTICASONE/VILANTEROL 1 EACH BLST.W.DEV IH SCH (09:00)
[2021-09-21] MEDS ORDERED: CARBIDOPA/LEVODOPA 25/100 MG 1 UDTAB PO SCH (09:00)
[2021-09-21] MEDS ORDERED: FLUOXETINE HCL 20 MG/5 ML UDC PO SCH (09:00)
[2021-09-21] MEDS: PANTOPRAZOLE 40 MG TABLET.DR PO SCH (09:03)
[2021-09-21] MEDS: CARBIDOPA/LEVODOPA 25/100 MG 1 UDTAB PO SCH ×4 (09:03→21:21)
[2021-09-21] MEDS: LORATADINE 10 MG TABLET PO SCH (09:04)
[2021-09-21] MEDS: MEMANTINE HCL 5 MG TABLET PO SCH ×2 (09:04→16:53)
[2021-09-21 12:00] VITALS: BP 157/89
[2021-09-21 16:00] VITALS: BP 121/85
[2021-09-21 20:00] VITALS: BP 137/72
[2021-09-21] MEDS: DONEPEZIL 5 MG TABLET PO SCH (21:21)
[2021-09-21] MEDS: ATORVASTATIN 10 MG TABLET PO SCH (21:21)
[2021-09-21] MEDS: MONTELUKAST SODIUM (10MG) 10 MG TABLET PO SCH (21:21)
[2021-09-22] VITALS: BP 149/80
[2021-09-22] MEDS: ENOXAPARIN SODIUM 40 MG/0.4 ML DISP.SYRIN SQ SCH (03:50)
[2021-09-22 04:00] VITALS: BP 153/91
[2021-09-22 07:54] LABS: BASOPHILS % (AUTO) 0.3 % (0.0-2.0); EOSINOPHILS % (AUTO) 2.9 % (0.0-6.0); HEMATOCRIT 40 % (33-45); HEMOGLOBIN 13.8 g/dL (11.5-14.8); LYMPHOCYTES # (AUTO) 2.8 K/uL (0.8-4.8); LYMPHOCYTES % (AUTO) 36.7 % (20.0-44.0); MEAN CORPUSCULAR HGB CONC 35 g/dl (31.0-36.0); MEAN CORPUSCULAR VOLUME 88 fL (82-100); MONOCYTES # (AUTO) 0.6 K/uL (0.1-1.30); MONOCYTES % (AUTO) 7.7 % (2.0-12.0); NEUTROPHILS # (AUTO) 3.9 K/uL (1.8-8.9); NEUTROPHILS % (AUTO) 52.4 % (43.0-81.0); PLATELET COUNT (AUTO) 182 K/uL (150-450); RED BLOOD CELL COUNT(AUTO) 4.54 MIL/uL (4.0-5.2); WHITE BLOOD COUNT (AUTO) 7.5 K/uL (4.3-11.0)
[2021-09-22 08:00] VITALS: BP 148/79
[2021-09-22 08:15] LABS: CALCIUM, SERUM 9.1 mg/dL (8.5-10.1); CREATININE 0.7 mg/dL (0.6-1.3); MAGNESIUM 2.6 mg/dL (1.8-2.4); PHOSPHORUS 3.6 mg/dL (2.5-4.9); POTASSIUM 3.8 mmol/L (3.5-5.1)
[2021-09-22] MEDS: FLUTICASONE/VILANTEROL 1 EACH BLST.W.DEV IH SCH (08:59)
[2021-09-22] MEDS: NITROGLYCERIN 0.1 MG/HR PATCH.TD24 TD SCH (09:00)
[2021-09-22] MEDS ORDERED: predniSONE 20 MG TABLET PO SCH (09:00)
[2021-09-22] MEDS: CARBIDOPA/LEVODOPA 25/100 MG 1 UDTAB PO SCH ×4 (09:02→21:08)
[2021-09-22] MEDS: MEMANTINE HCL 5 MG TABLET PO SCH ×2 (09:02→16:34)
[2021-09-22] MEDS: PANTOPRAZOLE 40 MG TABLET.DR PO SCH (09:02)
[2021-09-22] MEDS: SUCRALFATE 1 G/10 ML UDC PO SCH (09:03)
[2021-09-22] MEDS: FLUOXETINE HCL 20 MG CAPSULE PO SCH (09:03)
[2021-09-22] MEDS: LORATADINE 10 MG TABLET PO SCH (09:03)
[2021-09-22] MEDS: predniSONE 20 MG TABLET PO SCH (09:13)
[2021-09-22 12:00] VITALS: BP 130/72
[2021-09-22 16:00] VITALS: BP 127/55
[2021-09-22 20:52] VITALS: BP 145/89
[2021-09-22] MEDS: ATORVASTATIN 10 MG TABLET PO SCH (21:08)
[2021-09-22] MEDS: MONTELUKAST SODIUM (10MG) 10 MG TABLET PO SCH (21:08)
[2021-09-22] MEDS: DONEPEZIL 5 MG TABLET PO SCH (21:08)
[2021-09-23] MEDS: ENOXAPARIN SODIUM 40 MG/0.4 ML DISP.SYRIN SQ SCH (03:30)
[2021-09-23] MEDS ORDERED: SUCRALFATE 1 G TABLET PO SCH (07:30)
[2021-09-23 08:00] VITALS: BP 149/91
[2021-09-23] MEDS: PANTOPRAZOLE 40 MG TABLET.DR PO SCH (08:49)
[2021-09-23] MEDS: FLUTICASONE/VILANTEROL 1 EACH BLST.W.DEV IH SCH (08:51)
[2021-09-23] MEDS: LORATADINE 10 MG TABLET PO SCH (08:51)
[2021-09-23] MEDS: MEMANTINE HCL 5 MG TABLET PO SCH ×2 (08:51→16:19)
[2021-09-23] MEDS: FLUOXETINE HCL 20 MG CAPSULE PO SCH (08:51)
[2021-09-23] MEDS: CARBIDOPA/LEVODOPA 25/100 MG 1 UDTAB PO SCH ×3 (08:51→16:19)
[2021-09-23] MEDS: NITROGLYCERIN 0.1 MG/HR PATCH.TD24 TD SCH (08:51)
[2021-09-23] MEDS: predniSONE 20 MG TABLET PO SCH (08:52)
[2021-09-23 16:00] VITALS: BP 150/89
== END 2021-09-23 17:45 | DRG 311 ==
LOC: ER 01:18 → TRANSITION 05:12 → TELE 08:07 → MED 09-22 12:56
PROVIDERS: ADMIT Internal Medicine; ATTEND Internal Medicine
DX: I20.0 Unstable angina (principal); K86.1 Other chronic pancreatitis; I10 Essential (primary) hypertension; F02.80 Dementia in other diseases classified elsewhere, unspecified severity, without behavioral disturbance, psychotic disturbance, mood disturbance, and anxiety; G20 Parkinson's disease; G30.9 Alzheimer's disease, unspecified; J44.9 Chronic obstructive pulmonary disease, unspecified; Z20.822 Contact with and (suspected) exposure to COVID-19; Z90.49 Acquired absence of other specified parts of digestive tract; Z90.710 Acquired absence of both cervix and uterus; Z88.6 Allergy status to analgesic agent; Z88.5 Allergy status to narcotic agent; Z88.8 Allergy status to other drugs, medicaments and biological substances; Z79.51 Long term (current) use of inhaled steroids; Z79.899 Other long term (current) drug therapy; K21.00 Gastro-esophageal reflux disease with esophagitis, without bleeding; E78.5 Hyperlipidemia, unspecified; I70.0 Atherosclerosis of aorta; I70.8 Atherosclerosis of other arteries; F32.A Depression, unspecified; K29.70 Gastritis, unspecified, without bleeding; N26.1 Atrophy of kidney (terminal); M51.36 Other intervertebral disc degeneration, lumbar region; M41.9 Scoliosis, unspecified
CPT/HCPCS: 36415; 71045-TC; 80048-TC; 80076-TC; 83690-TC; 83735-TC; 83880; 84100-TC; 84484-TC; 85025-TC; 85730-TC; 87081-TC; 93307-TC; C9803; G0378; J1200; J1650; J2405; J2930; J7040

== ENCOUNTER 2021-09-24 22:59 | Emergency (ER) | payer MEDICARE, OTHER ==
[~2021-09-24] VITALS: Ht 157.5 cm; Wt 59.0 kg
--- NOTE | 2021-09-24 23:30 | NUR ---
FREDDIE FROM HOME TO ER BED 11. AAOX3. NOT IN RESP DISTRESS, BREATHING EVEN AND UNLABORED. BROUGHT IN FOR SOB AND GENERALIZED BODY HIVES AND RASH. PT DENIES ANY PAIN. CANT RECALL WHEN IT STARTED INSTEAD CALLED DAUGHTER SAID THAT RASHES STARTED TODAY. MD WAS AT THE BEDSIDE. ORDERS RECEIVED, NOTED AND CARRIED OUT.
[2021-09-24] MEDS ORDERED: methylPREDNISolone SOD SUCC 125 MG/2ML VIAL ONE (23:53)
[2021-09-24] MEDS ORDERED: ALBUTEROL FS 2.5 MG/3 ML VIAL.NEB ONE (23:59)
[2021-09-25] MEDS ORDERED: ALBUTEROL FS 2.5 MG/3 ML VIAL.NEB NEB ONE
[2021-09-25 00:41] LABS: BASOPHILS % (AUTO) 0.1 % (0.0-2.0); EOSINOPHILS % (AUTO) 0.2 % (0.0-6.0); HEMATOCRIT 38 % (33-45); HEMOGLOBIN 12.9 g/dL (11.5-14.8); LYMPHOCYTES # (AUTO) 0.7 K/uL (0.8-4.8); LYMPHOCYTES % (AUTO) 8.7 % (20.0-44.0); MEAN CORPUSCULAR HGB CONC 34 g/dl (31.0-36.0); MEAN CORPUSCULAR VOLUME 89 fL (82-100); MONOCYTES # (AUTO) 0.8 K/uL (0.1-1.30); MONOCYTES % (AUTO) 9.5 % (2.0-12.0); NEUTROPHILS % (AUTO) 81.5 % (43.0-81.0); PLATELET COUNT (AUTO) 175 K/uL (150-450); RED BLOOD CELL COUNT(AUTO) 4.24 MIL/uL (4.0-5.2); WHITE BLOOD COUNT (AUTO) 8.6 K/uL (4.3-11.0)
[2021-09-25 00:57] LABS: ALANINE AMINOTRANSFERASE 28 U/L (12-78); ALBUMIN 3.3 g/dL (3.4-5.0); ALKALINE PHOSPHATASE 95 U/L (46-116); ASPARTATE AMINOTRANSFERASE 27 U/L (15-37); BILIRUBIN,DIRECT 0.3 mg/dL (0.0-0.2); BILIRUBIN,TOTAL 0.8 mg/dL (0.2-1.0); CALCIUM, SERUM 8.8 mg/dL (8.5-10.1); CARBON DIOXIDE 28 mmol/L (21-32); CHLORIDE 107 mmol/L (98-107); CREATININE 1.3 mg/dL (0.6-1.3); POTASSIUM 3.8 mmol/L (3.5-5.1); SODIUM SERUM 142 mmol/L (136-145); TOTAL PROTEIN, SERUM 6.2 g/dL (6.4-8.2); UREA NITROGEN, BLOOD 41 mg/dL (7-18)
[2021-09-25] MEDS ORDERED: methylPREDNISolone SOD SUCC 125 MG/2ML VIAL IV ONE ×2 (01:00)
[2021-09-25 01:04] LABS: GLUCOSE 157 mg/dL (74-106)
[2021-09-25] MEDS ORDERED: methylPREDNISolone SOD SUCC 125 MG/2ML VIAL ONE (01:49)
[2021-09-25] MEDS ORDERED: ALBUTEROL SULFATE 8 GM HFA.AER.AD IH PRN (03:00)
--- NOTE | 2021-09-25 03:15 | NUR ---
CALLED PT'S DAUGHTER NO ANSWER.
[2021-09-25] MEDS ORDERED: ACET-2605 PO (03:24)
[2021-09-25] MEDS ORDERED: LABETALOL 20 MG/4 ML VIAL IV PRN (03:30)
[2021-09-25] MEDS ORDERED: MORPHINE SULFATE INJ 2 MG/ML DISP.SYRIN IV PRN (03:30)
[2021-09-25] MEDS ORDERED: ENOXAPARIN SODIUM 40 MG/0.4 ML DISP.SYRIN SQ SCH (03:30)
[2021-09-25] MEDS ORDERED: ACETAMINOPHEN 325 MG TABLET PO PRN (03:30)
[2021-09-25] MEDS ORDERED: ONDANSETRON HCL/PF 4 MG/2 ML VIAL IVP PRN (03:30)
[2021-09-25] MEDS ORDERED: IV NS 0.9% 1,000 ML IV PRN (03:30)
--- NOTE | 2021-09-25 06:52 | NUR ---
CALLED PT'S DAUGHTER ONCE AGAIN AND STILL NO ANSWER. MESSAGE LEFT
--- NOTE | 2021-09-25 07:00 | NUR ---
CALLED DAUGHTER AND WILL FRONT OF HOUSE MANAGER HER MOM IN A FEW.
[2021-09-25] MEDS ORDERED: SUCRALFATE 1 G/10 ML UDC PO SCH (07:30)
--- NOTE | 2021-09-25 07:41 | NUR ---
[phone] CELL [phone] HOME FRAN (DAUGHTER).
[2021-09-25] MEDS ORDERED: FLUTICASONE/VILANTEROL 1 EACH BLST.W.DEV IH SCH (09:00)
[2021-09-25] MEDS ORDERED: LORATADINE 10 MG TABLET PO SCH (09:00)
[2021-09-25] MEDS ORDERED: CARBIDOPA/LEVODOPA 25/100 MG 1 UDTAB PO SCH ×2 (09:00)
[2021-09-25] MEDS ORDERED: predniSONE 50 MG TABLET PO SCH (09:00)
[2021-09-25] MEDS ORDERED: OMEPRAZOLE 20 MG CAPSULE.DR PO SCH (09:00)
[2021-09-25] MEDS ORDERED: FAMOTIDINE (20 MG) 20 MG TABLET PO SCH (09:00)
[2021-09-25] MEDS ORDERED: MONTELUKAST SODIUM (10MG) 10 MG TABLET PO SCH (09:00)
[2021-09-25] MEDS ORDERED: FLUOXETINE HCL 20 MG CAPSULE PO SCH (09:00)
--- NOTE | 2021-09-25 10:03 | NUR ---
CYDNEY ROBERSON AT BEDSIDE.
--- NOTE | 2021-09-25 10:32 | NUR ---
Pt. is refusing to go to rehab facility. Daughter is refusing to supervisor picking crew pt. Consulting with Laurie for discharge plan, will update soon.
--- NOTE | 2021-09-25 10:40 | NUR ---
[facility] CALLED ETA 30 MINS PER TARIQ.
[2021-09-25] MEDS ORDERED: LORAZEPAM INJ 2 MG/ML VIAL ONE (10:50)
[2021-09-25] MEDS ORDERED: LORAZEPAM INJ 2 MG/ML VIAL IM ONE (11:00)
--- NOTE | 2021-09-25 11:51 | NUR ---
ATTEMPTED TO GIVE REPORT TO [facility], [facility] WILL CALL BACK
--- NOTE | 2021-09-25 12:03 | NUR ---
Adela from [facility] will be looking for placement.
--- NOTE | 2021-09-25 12:47 | NUR ---
PT ACCEPTED TO [facility] ROOM 4C PLEASE CALL [phone] FOR REPORT
--- NOTE | 2021-09-25 12:50 | NUR ---
CALLED FOR TRANSPORT [facility] ETA 30 MINS PER BETZAIDA.
[2021-09-25] MEDS ORDERED: LIPASE/PROTEASE/AMYLASE 1 EACH CAPSULE.DR PO SCH (13:00)
--- NOTE | 2021-09-25 13:07 | NUR ---
[facility] ROOM 4C,
[2021-09-25 13:09] VITALS: BP 132/96
--- NOTE | 2021-09-25 13:13 | NUR ---
REPORT GIVEN TO STEPHANIE WYNN FOR JAY
--- NOTE | 2021-09-25 13:15 | NUR ---
SPOKE WITH DAUGHTER UPDATED RE: D/C PLAN, PATIENT GOING TO [facility]. DAUGHTER AGREED WITH PLAN OF CARE.
--- NOTE | 2021-09-25 13:32 | NUR ---
PICKED UP BY [facility] IN STABLE CONDITION
[2021-09-25] MEDS ORDERED: MEMANTINE HCL 5 MG TABLET PO SCH (17:00)
[2021-09-25] MEDS ORDERED: UBIDECARENONE 200 MG PO SCH (22:00)
[2021-09-25] MEDS ORDERED: ATORVASTATIN 10 MG TABLET PO SCH (22:00)
[2021-09-25] MEDS ORDERED: DONEPEZIL 5 MG TABLET PO SCH (22:00)
[2021-09-26] MEDS ORDERED: PANTOPRAZOLE 40 MG TABLET.DR PO SCH (07:30)
== END 2021-09-25 13:34 ==
LOC: ER 23:01
DX: L50.9 Urticaria, unspecified (principal); U07.1 COVID-19; J98.11 Atelectasis; Z87.892 Personal history of anaphylaxis; Z88.6 Allergy status to analgesic agent; Z91.013 Allergy to seafood; I10 Essential (primary) hypertension; G30.9 Alzheimer's disease, unspecified; F02.80 Dementia in other diseases classified elsewhere, unspecified severity, without behavioral disturbance, psychotic disturbance, mood disturbance, and anxiety; G20 Parkinson's disease; Z86.39 Personal history of other endocrine, nutritional and metabolic disease
CPT/HCPCS: 36415; 71045; 80048; 80076; 83605; 84484; 85025; 87426; 93005; 94640; 96372; 96374; 99285; J2060; J2930; C9803

== ENCOUNTER 2023-04-23 20:59 | Emergency (ER) | payer MEDICARE, OTHER ==
[~2023-04-23] VITALS: Ht 167.6 cm; Wt 64.9 kg
[~2023-04-23 20:59] MED LIST changes: +ACET-2605 PO
[2023-04-23 21:23] VITALS: BP 126/62; TEMP 97.9; O2SAT 98
[2023-04-23 22:21] LABS: BASOPHILS % (AUTO) 0.3 % (0.0-2.0); EOSINOPHILS # (AUTO) 0.7 K/uL (0.0-0.7); EOSINOPHILS % (AUTO) 8.5 % (0.0-6.0); HEMATOCRIT 39 % (33-45); HEMOGLOBIN 12.9 g/dL (11.5-14.8); LYMPHOCYTES # (AUTO) 2.9 K/uL (0.8-4.8); LYMPHOCYTES % (AUTO) 37.1 % (20.0-44.0); MEAN CORPUSCULAR HEMOGLOBIN 28 PG (26.0-33.0); MEAN CORPUSCULAR HGB CONC 33 g/dl (31.0-36.0); MEAN CORPUSCULAR VOLUME 86 fL (82-100); MONOCYTES # (AUTO) 0.7 K/uL (0.1-1.30); MONOCYTES % (AUTO) 8.2 % (2.0-12.0); NEUTROPHILS # (AUTO) 3.6 K/uL (1.8-8.9); NEUTROPHILS % (AUTO) 45.9 % (43.0-81.0); PLATELET COUNT (AUTO) 155 K/uL (150-450); RED BLOOD CELL COUNT(AUTO) 4.55 MIL/uL (4.0-5.2); RED CELL DISTRIBUTION WIDTH 14.2 % (11.5-15.0); WHITE BLOOD COUNT (AUTO) 7.9 K/uL (4.3-11.0)
[2023-04-23 22:31] LABS: CALCIUM, SERUM 8.9 mg/dL (8.5-10.1); CARBON DIOXIDE 27 mmol/L (21-32); CHLORIDE 106 mmol/L (98-107); CREATININE 0.8 mg/dL (0.6-1.3); GLUCOSE 88 mg/dL (74-106); POTASSIUM 3.6 mmol/L (3.5-5.1); SODIUM SERUM 141 mmol/L (136-145); UREA NITROGEN, BLOOD 25 mg/dL (7-18)
[2023-04-23 22:36] LABS: INR 1.05 (0.91-1.10); PARTIAL THROMBOPLASTIN TIME 28.2 SEC (24.3-34.3)
== END 2023-04-24 01:04 ==
LOC: ER 21:16
DX: M51.36 Other intervertebral disc degeneration, lumbar region (principal); M43.06 Spondylolysis, lumbar region; G30.9 Alzheimer's disease, unspecified; F02.80 Dementia in other diseases classified elsewhere, unspecified severity, without behavioral disturbance, psychotic disturbance, mood disturbance, and anxiety; G20 Parkinson's disease; I10 Essential (primary) hypertension; Z90.49 Acquired absence of other specified parts of digestive tract; Z88.8 Allergy status to other drugs, medicaments and biological substances; Z91.013 Allergy to seafood; Z79.899 Other long term (current) drug therapy; W18.30XA Fall on same level, unspecified, initial encounter; Y93.89 Activity, other specified; Y92.89 Other specified places as the place of occurrence of the external cause; Y99.8 Other external cause status
CPT/HCPCS: 36415; 71045-TC; 72192-TC; 72220-TC; 80048-TC; 85025-TC; 85730-TC

== ENCOUNTER 2023-11-22 15:42 | Inpatient (IN) | payer MEDICARE, OTHER ==
[~2023-11-22] VITALS: Ht 160 cm; Wt 59.9 kg
[~2023-11-22 15:42] MED LIST changes: +ACET325T53 PO; +AMOX1TAB16 PO; +BACI28.42 TP; +FAMO40TA7 PO; +PRED20TA PO
[2023-11-22 17:19] LABS: BASOPHILS % (AUTO) 0.1 % (0.0-2.0); EOSINOPHILS % (AUTO) 0.4 % (0.0-6.0); HEMATOCRIT 36 % (33-45); HEMOGLOBIN 12.3 g/dL (11.5-14.8); LYMPHOCYTES # (AUTO) 1.8 K/uL (0.8-4.8); LYMPHOCYTES % (AUTO) 16.8 % (20.0-44.0); MEAN CORPUSCULAR HEMOGLOBIN 30 PG (26.0-33.0); MEAN CORPUSCULAR HGB CONC 34 g/dl (31.0-36.0); MEAN CORPUSCULAR VOLUME 88 fL (82-100); MONOCYTES # (AUTO) 0.9 K/uL (0.1-1.30); NEUTROPHILS # (AUTO) 7.7 K/uL (1.8-8.9); NEUTROPHILS % (AUTO) 73.7 % (43.0-81.0); PLATELET COUNT (AUTO) 153 K/uL (150-450); RED BLOOD CELL COUNT(AUTO) 4.07 MIL/uL (4.0-5.2); RED CELL DISTRIBUTION WIDTH 14.1 % (11.5-15.0); WHITE BLOOD COUNT (AUTO) 10.5 K/uL (4.3-11.0)
[2023-11-22] MEDS: IV NS 0.9% 500 ML BAG IV ONE (17:26)
[2023-11-22 17:33] LABS: INR 1.09 (0.91-1.10); PARTIAL THROMBOPLASTIN TIME 28.2 SEC (24.3-34.3); PROTHROMBIN TIME 11.5 SECS (9.2-11.1)
[2023-11-22] MEDS ORDERED: AMYL1CAP56 PO (17:40)
[2023-11-22] MEDS ORDERED: ERGO500093 PO (17:40)
[2023-11-22] MEDS ORDERED: CALC-903 PO (17:40)
[2023-11-22] MEDS ORDERED: FOLI0.4T6 PO (17:40)
[2023-11-22] MEDS ORDERED: PANT40TA49 PO (17:40)
[2023-11-22] MEDS ORDERED: ALEN35TA51 PO (17:40)
[2023-11-22] MEDS ORDERED: MIRT7.5T10 PO (17:40)
[2023-11-22] MEDS ORDERED: VENL75TA4 PO (17:40)
[2023-11-22 17:42] LABS: CALCIUM, SERUM 8.3 mg/dL (8.5-10.1); CARBON DIOXIDE 29 mmol/L (21-32); CHLORIDE 104 mmol/L (98-107); CREATININE 0.9 mg/dL (0.6-1.3); GLUCOSE 123 mg/dL (74-106); POTASSIUM 3.5 mmol/L (3.5-5.1); SODIUM SERUM 141 mmol/L (136-145); UREA NITROGEN, BLOOD 23 mg/dL (7-18)
[2023-11-22 17:48] LABS: ALANINE AMINOTRANSFERASE 11 U/L (12-78); ALBUMIN 3.2 g/dL (3.4-5.0); ALKALINE PHOSPHATASE 85 U/L (46-116); ASPARTATE AMINOTRANSFERASE 25 U/L (15-37); BILIRUBIN,DIRECT 0.2 mg/dL (0.0-0.2); BILIRUBIN,TOTAL 0.7 mg/dL (0.2-1.0); TOTAL PROTEIN, SERUM 6.7 g/dL (6.4-8.2)
[2023-11-22 17:58] LABS: THYROID STIMULATING HORMONE 1.354 uIU/mL (0.358-3.74)
[2023-11-22 18:22] LABS: SERUM AMMONIA < 11 umol/L (11-32)
[2023-11-22 18:27] LABS: APPEARANCE,URINE SLIGHTLY CLOUDY (CLEAR); BILIRUBIN,URINE NEGATIVE (NEGATIVE); BLOOD, URINE TRACE-INTA Ery/uL (NEGATIVE); COLOR,URINE YELLOW (YELLOW); KETONES,URINE NEGATIVE (NEGATIVE); LEUKOCYTE ESTERASE ,URINE 1+ (NEGATIVE); NITRITE, URINE NEGATIVE (NEGATIVE); PH,URINE 6.5 (5.0-8.0); PROTEIN,URINE NEGATIVE (NEGATIVE); UGLUCOSE NEGATIVE (NEGATIVE); UROBILINOGEN,URINE 0.2 EU/dL (0.2)
[2023-11-22 18:35] LABS: ADD URINE CULTURE YES; BACTERIA,URINE 1+ /HPF (None Seen)
[2023-11-22] MEDS ORDERED: Z GUARD REMEDY 4 OZ OINT TP PRN (20:30)
[2023-11-22] MEDS ORDERED: ONDANSETRON HCL/PF 4 MG/2 ML VIAL IVP PRN (20:30)
[2023-11-22] MEDS: ENOXAPARIN SODIUM 40 MG/0.4 ML DISP.SYRIN SQ SCH (20:30)
[2023-11-22] MEDS: CARBIDOPA/LEVODOPA 25/100 MG 1 UDTAB PO SCH (21:00)
[2023-11-22 21:20] VITALS: BP 163/80; TEMP 97.7; O2SAT 94
[2023-11-22] MEDS: IV 1/2NS 1000 ML 1,000 ML IV PRN (21:50)
[2023-11-22] MEDS: CEFTRIAXONE 1GM BAG (ER ONLY) 50 ML IV ONE (23:32)
[2023-11-23] MEDS: CEFTRIAXONE 1 G in IV D5W 50 ML IV SCH (00:11)
[2023-11-23 07:01] LABS: BASOPHILS % (AUTO) 0.2 % (0.0-2.0); EOSINOPHILS # (AUTO) 0.1 K/uL (0.0-0.7); EOSINOPHILS % (AUTO) 0.7 % (0.0-6.0); HEMATOCRIT 36 % (33-45); HEMOGLOBIN 12.4 g/dL (11.5-14.8); LYMPHOCYTES # (AUTO) 1.6 K/uL (0.8-4.8); LYMPHOCYTES % (AUTO) 19.3 % (20.0-44.0); MEAN CORPUSCULAR HEMOGLOBIN 30 PG (26.0-33.0); MEAN CORPUSCULAR HGB CONC 34 g/dl (31.0-36.0); MEAN CORPUSCULAR VOLUME 87 fL (82-100); MONOCYTES # (AUTO) 0.6 K/uL (0.1-1.30); MONOCYTES % (AUTO) 7.4 % (2.0-12.0); NEUTROPHILS # (AUTO) 6.1 K/uL (1.8-8.9); NEUTROPHILS % (AUTO) 72.4 % (43.0-81.0); PLATELET COUNT (AUTO) 139 K/uL (150-450); RED BLOOD CELL COUNT(AUTO) 4.15 MIL/uL (4.0-5.2); RED CELL DISTRIBUTION WIDTH 14.3 % (11.5-15.0); WHITE BLOOD COUNT (AUTO) 8.4 K/uL (4.3-11.0)
[2023-11-23 07:27] LABS: CALCIUM, SERUM 7.8 mg/dL (8.5-10.1); CARBON DIOXIDE 27 mmol/L (21-32); CHLORIDE 105 mmol/L (98-107); CHOLESTEROL 182 mg/dL (<200); CREATININE 0.6 mg/dL (0.6-1.3); GLUCOSE 100 mg/dL (74-106); HDL CHOLESTEROL 67 mg/dL (40-60); LDL 94 mg/dL (0-99); MAGNESIUM 1.8 mg/dL (1.8-2.4); PHOSPHORUS 3.3 mg/dL (2.5-4.9); SODIUM SERUM 142 mmol/L (136-145); THYROID STIMULATING HORMONE 2.302 uIU/mL (0.358-3.74); TRIGLYCERIDES 87 mg/dL (30-150); UREA NITROGEN, BLOOD 13 mg/dL (7-18)
[2023-11-23 07:30] VITALS: BP 151/95; TEMP 97.5; O2SAT 94
[2023-11-23] MEDS ORDERED: ALENDRONATE 35 MG TABLET PO SCH (07:30)
[2023-11-23] MEDS: FOLIC ACID 1 MG TABLET PO SCH (08:07)
[2023-11-23] MEDS: PANTOPRAZOLE 40 MG TABLET.DR PO SCH (08:07)
[2023-11-23] MEDS: MEMANTINE HCL 5 MG TABLET PO SCH (08:07)
[2023-11-23] MEDS: LIPASE/PROTEASE/AMYLASE 1 EACH CAPSULE.DR PO SCH (08:07)
[2023-11-23] MEDS: FLUTICASONE/VILANTEROL 1 EACH BLST.W.DEV IH SCH (08:09)
[2023-11-23] MEDS ORDERED: VENLAFAXINE 25 MG TABLET PO SCH (09:00)
[2023-11-23] MEDS: POTASSIUM CHLORIDE 20 MEQ TAB.PRT.SR PO SCH (10:16)
[2023-11-23 16:00] VITALS: BP 133/90; TEMP 97.9; O2SAT 98
[2023-11-23] MEDS: MONTELUKAST SODIUM (10MG) 10 MG TABLET PO SCH (17:14)
[2023-11-23 20:00] VITALS: BP 140/80; TEMP 98.4; O2SAT 95
[2023-11-23] MEDS: VENLAFAXINE XR 75 MG CAP.SR.24H PO SCH (20:49)
[2023-11-23] MEDS: DONEPEZIL 5 MG TABLET PO SCH (21:11)
[2023-11-23] MEDS: MIRTAZAPINE 15 MG TABLET PO SCH (21:11)
[2023-11-24 06:32] VITALS: O2SAT 95
[2023-11-24 08:00] VITALS: BP 146/80; TEMP 97.7; O2SAT 95
[2023-11-24] MEDS: ERGOCALCIFEROL (VITAMIN D 2) 50,000 UNIT CAPSULE PO SCH (12:21)
[2023-11-24 12:47] LABS: CREATININE 0.6 mg/dL (0.6-1.3); POTASSIUM 3.9 mmol/L (3.5-5.1)
[2023-11-24 12:50] LABS: PHOSPHORUS 3.2 mg/dL (2.5-4.9)
[2023-11-24 13:18] LABS: BASOPHILS % (AUTO) 0.2 % (0.0-2.0); EOSINOPHILS # (AUTO) 0.3 K/uL (0.0-0.7); EOSINOPHILS % (AUTO) 3.6 % (0.0-6.0); HEMATOCRIT 37 % (33-45); HEMOGLOBIN 12.5 g/dL (11.5-14.8); LYMPHOCYTES # (AUTO) 1.4 K/uL (0.8-4.8); LYMPHOCYTES % (AUTO) 19.3 % (20.0-44.0); MEAN CORPUSCULAR HEMOGLOBIN 30 PG (26.0-33.0); MEAN CORPUSCULAR HGB CONC 34 g/dl (31.0-36.0); MEAN CORPUSCULAR VOLUME 88 fL (82-100); MONOCYTES # (AUTO) 0.6 K/uL (0.1-1.30); MONOCYTES % (AUTO) 7.6 % (2.0-12.0); NEUTROPHILS # (AUTO) 5.1 K/uL (1.8-8.9); NEUTROPHILS % (AUTO) 69.3 % (43.0-81.0); PLATELET COUNT (AUTO) 142 K/uL (150-450); RED CELL DISTRIBUTION WIDTH 14.7 % (11.5-15.0); WHITE BLOOD COUNT (AUTO) 7.4 K/uL (4.3-11.0)
[2023-11-24 16:00] VITALS: BP 142/86; TEMP 98.6; O2SAT 95
[2023-11-24 20:45] VITALS: BP 130/74; TEMP 97.7; O2SAT 95
[2023-11-25] MEDS ORDERED: ALENDRONATE 70 MG TABLET PO SCH (07:30)
[2023-11-25] MEDS ORDERED: ALENDRONATE 35 MG TABLET PO SCH (07:30)
[2023-11-25 08:00] VITALS: BP 135/81; TEMP 97.7; O2SAT 97
[2023-11-25] MEDS ORDERED: CEPH500C2 PO (08:56)
[2023-11-25] MEDS: MAGNESIUM HYDROXIDE 30 ML UDC PO PRN (10:49)
[2023-11-25] MEDS: ACETAMINOPHEN 325 MG TABLET PO PRN (15:13)
== END 2023-11-25 18:43 | DRG 640 ==
LOC: ER 15:50 → MED 20:07
PROVIDERS: ADMIT Nurse Practitioner Family; ATTEND Internal Medicine
DX: R62.7 Adult failure to thrive (principal); G93.41 Metabolic encephalopathy; K85.90 Acute pancreatitis without necrosis or infection, unspecified; F02.84 Dementia in other diseases classified elsewhere, unspecified severity, with anxiety; E44.1 Mild protein-calorie malnutrition; N39.0 Urinary tract infection, site not specified; E86.0 Dehydration; I10 Essential (primary) hypertension; G30.9 Alzheimer's disease, unspecified; G20.A1 Parkinson's disease without dyskinesia, without mention of fluctuations; Z20.822 Contact with and (suspected) exposure to COVID-19; E03.9 Hypothyroidism, unspecified; F32.A Depression, unspecified; K21.9 Gastro-esophageal reflux disease without esophagitis; Z90.710 Acquired absence of both cervix and uterus; Z90.49 Acquired absence of other specified parts of digestive tract; Z88.6 Allergy status to analgesic agent; Z88.8 Allergy status to other drugs, medicaments and biological substances; Z79.83 Long term (current) use of bisphosphonates; Z79.899 Other long term (current) drug therapy; Z79.51 Long term (current) use of inhaled steroids; R79.89 Other specified abnormal findings of blood chemistry; E88.09 Other disorders of plasma-protein metabolism, not elsewhere classified; J45.909 Unspecified asthma, uncomplicated; B96.89 Other specified bacterial agents as the cause of diseases classified elsewhere; S50.312A Abrasion of left elbow, initial encounter; W19.XXXA Unspecified fall, initial encounter; Y92.9 Unspecified place or not applicable
CPT/HCPCS: 36415; 71045-TC; 80048-TC; 80061-TC; 80076-TC; 81001; 82140-TC; 82962-TC; 83735-TC; 84100-TC; 84443-TC; 85025-TC; 85730-TC; 87081-TC; 87086-TC; 97110-TC; 97116-TC; 97530-TC; 97535-TC; A4223; G0378; J0696; J1650; J7060

== ENCOUNTER 2025-07-28 18:30 | Inpatient (IN) | payer MEDICARE, OTHER ==
[~2025-07-28] VITALS: Ht 157.5 cm; Wt 64.4 kg
[2025-07-28 09:35] VITALS: BP 153/84; TEMP 98.2; O2SAT 97
[~2025-07-28 18:30] MED LIST changes: -ACET-2605 PO; -ALBU18HF2 IH; +ALEN35TA51 PO; +AMYL1CAP56 PO; -AMYL1CAP58 PO; -ATOR10TA PO; +CALC-903 PO; -CARB-300 PO; +CEPH500C2 PO; +DUPI300S SQ; +ERGO500093 PO; -FAMO20TA8 PO; -FLUO20TA28 PO; -FLUT1BLS INH; +FOLI0.4T6 PO; -LORA10TA7 PO; +MIRT7.5T10 PO; -NITR1PAT64 TD; -NITR1PAT67 TD; -OMEP20CA15 PO; -OMEP40CA21 PO; +PANT40TA49 PO; -PRED20TA PO; -PRED50TA PO; -SUCR1ORA15 PO; -UBID200C36 PO; +VENL75TA4 PO
[2025-07-28] MEDS: IV NS 0.9% 1,000 ML BAG IV ONE ×2 (19:00→23:04)
[2025-07-28] MEDS ORDERED: CALC500T88 PO (19:57)
[2025-07-28] MEDS ORDERED: METH57CR13 TP (19:57)
[2025-07-28] MEDS ORDERED: ALBU90AE2 IH (19:57)
[2025-07-28] MEDS ORDERED: GLUCOSAMINE SULFATE PO (19:57)
[2025-07-28] MEDS ORDERED: FAMO20TA8 PO (19:57)
[2025-07-28] MEDS ORDERED: MAGN400O6 PO (19:57)
[2025-07-28] MEDS ORDERED: KETO120S5 TP (19:57)
[2025-07-28] MEDS ORDERED: CRAN250C PO (19:57)
[2025-07-28] MEDS ORDERED: MEGE400O5 PO (19:57)
[2025-07-28] MEDS ORDERED: GUAI120S42 PO (19:57)
[2025-07-28] MEDS ORDERED: PRIM50TA27 PO (19:57)
[2025-07-28] MEDS ORDERED: SACC250C9 PO (19:57)
[2025-07-28] MEDS ORDERED: MAG-55 PO (19:57)
[2025-07-28] MEDS ORDERED: ESTR42.511 VG (19:57)
[2025-07-28] MEDS ORDERED: LIDO1ADH82 TP (19:57)
[2025-07-28] MEDS ORDERED: FEXO-65 PO (19:57)
[2025-07-28] MEDS ORDERED: MIRABEGRON PO (19:57)
[2025-07-28] MEDS ORDERED: APIX2.5T PO (19:57)
[2025-07-28] MEDS ORDERED: IPRA42SP BNOSTRILS (19:57)
[2025-07-28] MEDS ORDERED: PROP15DR EACHEYE (19:57)
[2025-07-28] MEDS ORDERED: SIMV-49 PO (19:57)
[2025-07-28] MEDS ORDERED: BIOT10TA PO (19:57)
[2025-07-28] MEDS ORDERED: VIT1CAPS44 PO (19:57)
[2025-07-28] MEDS ORDERED: CHOL100040 PO (19:57)
[2025-07-28 20:31] LABS: PLATELET COUNT (AUTO) 92 K/uL (150-450); RED BLOOD CELL COUNT(AUTO) 3.62 MIL/uL (4.0-5.2); RED CELL DISTRIBUTION WIDTH 17.3 % (11.5-15.0); WHITE BLOOD COUNT (AUTO) 7.5 K/uL (4.3-11.0)
[2025-07-28 20:45] LABS: SERUM AMMONIA 9 umol/L (11-32)
[2025-07-28 20:48] LABS: INR 1.07 (0.91-1.10)
[2025-07-28 20:48] LABS: ABG BASE EXCESS 0.2 mmol/L (-2.0-3.0); ABG OXYGEN SATURATION 95.5 % (94.0-98.0); ABG PCO2 32.8 mmHg (32.0-45.0); ABG PH 7.470 (7.350-7.450); ABG PO2 82.0 mmHg (83.0-108.0); ABG TOTAL HEMOGLOBIN 11.4 G/dL (12.0-16.0); SITE, ABG RIGHT BRACHIAL
[2025-07-28 21:03] LABS: CALCIUM, SERUM 7.5 mg/dL (8.5-10.1); CREATININE 0.6 mg/dL (0.6-1.3); SODIUM SERUM 141 mmol/L (136-145); UREA NITROGEN, BLOOD 43 mg/dL (7-18)
[2025-07-28 21:06] LABS: LACTIC ACID 2.1 mmol/L (0.4-2.0)
[2025-07-28 21:10] LABS: ASPARTATE AMINOTRANSFERASE 21 U/L (15-37); TOTAL PROTEIN, SERUM 5.5 g/dL (6.4-8.2)
[2025-07-28 21:11] LABS: ALCOHOL, BLOOD < 3 mg/dL (0-10)
[2025-07-28 21:26] LABS: LYMPHOCYTES % (MANUAL) 19 % (16-48); MONOCYTES % (MANUAL) 4 % (0-11.0); NEUTROPHILS % (MANUAL) 76 (42-76); PLATELET ESTIMATE DECREASED
[2025-07-28] MEDS ORDERED: ACETAMINOPHEN 325 MG TABLET PO PRN (21:30)
[2025-07-28] MEDS ORDERED: ENOXAPARIN SODIUM 40 MG/0.4 ML DISP.SYRIN SQ SCH (21:30)
[2025-07-28 21:31] LABS: APPEARANCE,URINE SLIGHTLY CLOUDY (CLEAR); BLOOD, URINE 3+ Ery/uL (NEGATIVE); LEUKOCYTE ESTERASE ,URINE TRACE (NEGATIVE); NITRITE, URINE NEGATIVE (NEGATIVE); UGLUCOSE NEGATIVE (NEGATIVE)
[2025-07-28 21:44] LABS: ADD URINE CULTURE YES; SQUAMOUS EPITHELIAL CELL,UR Few /HPF (None Seen)
[2025-07-28 21:47] LABS: TRIPLE PHOSPHATE CRYSTAL,UR Moderate /HPF (None Seen)
[2025-07-28 21:58] LABS: AMPHETAMINE, URINE NEGATIVE (NEGATIVE); BARBITURATE, URINE NEGATIVE (NEGATIVE); BENZODIAZEPINE, URINE NEGATIVE (NEGATIVE); CANNABINOID, URINE NEGATIVE (NEGATIVE); COCCAINE, URINE NEGATIVE (NEGATIVE); OPIATE, URINE NEGATIVE (NEGATIVE)
[2025-07-28] MEDS: POTASSIUM CL. PREMIX PERIPHER. 50 ML IV SCH (23:00)
[2025-07-28] MEDS: PRIMIDONE 50 MG TABLET PO SCH (23:17)
[2025-07-28] MEDS: MONTELUKAST SODIUM (10MG) 10 MG TABLET PO SCH (23:18)
[2025-07-28] MEDS: MEMANTINE HCL 5 MG TABLET PO SCH (23:18)
[2025-07-28] MEDS: DONEPEZIL 5 MG TABLET PO SCH (23:18)
[2025-07-28] MEDS: CARBIDOPA/LEVODOPA 25/100 MG 1 UDTAB PO SCH (23:19)
[2025-07-28] MEDS: IV NS 0.9% 1,000 ML IV PRN (23:41)
[2025-07-28] MEDS: CEFTRIAXONE 1GM BAG (ER ONLY) 50 ML IV ONE (23:44)
[2025-07-28] MEDS: SIMVASTATIN 20 MG TABLET ONE (23:46)
[2025-07-29] VITALS: BP 153/90; TEMP 97.9; O2SAT 97
[2025-07-29] MEDS: SIMVASTATIN 40 MG TABLET PO SCH (00:10)
[2025-07-29] MEDS: POTASSIUM CL. PREMIX PERIPHER. 50 ML IV SCH (00:35)
[2025-07-29] MEDS: APIXABAN 2.5 MG TABLET PO SCH (01:46)
[2025-07-29 04:00] VITALS: BP 149/84; TEMP 99.1; O2SAT 97
[2025-07-29 06:55] LABS: PLATELET COUNT (AUTO) 98 K/uL (150-450); RED BLOOD CELL COUNT(AUTO) 3.80 MIL/uL (4.0-5.2); RED CELL DISTRIBUTION WIDTH 16.8 % (11.5-15.0); WHITE BLOOD COUNT (AUTO) 6.6 K/uL (4.3-11.0)
[2025-07-29 06:59] LABS: CALCIUM, SERUM 7.3 mg/dL (8.5-10.1); CREATININE 0.6 mg/dL (0.6-1.3); PHOSPHORUS 2.5 mg/dL (2.5-4.9); SODIUM SERUM 145.0 mmol/L (136-145); UREA NITROGEN, BLOOD 33.0 mg/dL (7-18)
[2025-07-29] MEDS: FAMOTIDINE (20 MG) 20 MG TABLET PO SCH (08:53)
[2025-07-29] MEDS: CALCIUM CARBONATE (1250) 500 MG TABLET PO SCH (08:53)
[2025-07-29] MEDS: MEGESTROL ACETATE SUSP 400 MG/10 ML UDC PO SCH (08:53)
[2025-07-29] MEDS: CHOLECALCIFEROL 1,000 UNIT TABLET (VIT D3) PO SCH (08:54)
[2025-07-29] MEDS: IPRATROPIUM BROMIDE 0.06% 15 ML NASPR NS SCH (09:00)
[2025-07-29 09:06] VITALS: BP 160/86; TEMP 97.9; O2SAT 99
[2025-07-29] MEDS: MOMETASONE/FORMOTEROL 8.8 GM HFA.AER.AD INH SCH (11:11)
[2025-07-29 11:39] LABS: BASOPHILS % (MANUAL) 0 % (0.0-2.0); EOSINOPHILS % (MANUAL) 0 % (0-4); LYMPHOCYTES % (MANUAL) 22 % (16-48); MONOCYTES % (MANUAL) 9 % (0-11.0); NEUTROPHILS % (MANUAL) 69 (42-76); PLATELET ESTIMATE DECREASED
[2025-07-29] MEDS: MAG HYDROX/AL HYDROX/SIMETH 30 ML UDC PO PRN (12:37)
[2025-07-29] MEDS: ENSURE ENLIVE CHOC 237 ML CAN PO SCH (12:38)
[2025-07-29 18:27] VITALS: BP 139/78; TEMP 98.8; O2SAT 96
[2025-07-29 20:00] VITALS: BP 154/89; TEMP 98.2; O2SAT 97
[2025-07-29] MEDS: CEFTRIAXONE 1 G in IV D5W 50 ML IV SCH (21:30)
[2025-07-29] MEDS: SIMVASTATIN 20 MG TABLET PO SCH (21:31)
[2025-07-30] VITALS (8 sets, daily range): BP systolic 121–190; BP diastolic 74–90; TEMP 97.5–100.2; O2SAT 89–99
[2025-07-30 08:04] LABS: OCCULT BLOOD STOOL POSITIVE (NEGATIVE)
[2025-07-30] MEDS: MEGESTROL ACETATE SUSP 400 MG/10 ML UDC PO SCH (09:00)
[2025-07-30] MEDS: MAGNESIUM HYDROXIDE 30 ML UDC PO PRN (13:39)
[2025-07-31] VITALS (7 sets, daily range): BP systolic 107–146; BP diastolic 66–76; TEMP 97.5–98.2; O2SAT 96–99
[2025-07-31] MEDS: ALBUTEROL FS 2.5 MG/0.5 ML VIAL.NEB NEB PRN (12:55)
[2025-07-31] MEDS: IPRATROPIUM NEB FS 0.5 MG/2.5 ML AMPUL.NEB NEB PRN (12:55)
[2025-07-31] MEDS ORDERED: CALCIUM CARBONATE 500 MG TAB.CHEW PO PRN (13:30)
[2025-07-31] MEDS: FAMOTIDINE (20 MG) 20 MG TABLET PO SCH (16:09)
[2025-07-31 16:13] LABS: PLATELET COUNT (AUTO) 113 K/uL (150-450); RED BLOOD CELL COUNT(AUTO) 3.82 MIL/uL (4.0-5.2); RED CELL DISTRIBUTION WIDTH 17.3 % (11.5-15.0); WHITE BLOOD COUNT (AUTO) 6.7 K/uL (4.3-11.0)
[2025-07-31 17:41] LABS: NEUTROPHILS % (MANUAL) 57 (42-76)
[2025-07-31 17:42] LABS: EOSINOPHILS % (MANUAL) 1 % (0-4); LYMPHOCYTES % (MANUAL) 32 % (16-48); MONOCYTES % (MANUAL) 10 % (0-11.0); PLATELET ESTIMATE DECREASED
[2025-08-01 06:47] LABS: PLATELET COUNT (AUTO) 118 K/uL (150-450); RED BLOOD CELL COUNT(AUTO) 3.83 MIL/uL (4.0-5.2); RED CELL DISTRIBUTION WIDTH 17.0 % (11.5-15.0); WHITE BLOOD COUNT (AUTO) 6.5 K/uL (4.3-11.0)
[2025-08-01 08:00] VITALS: BP 185/86; TEMP 98.1; TEMP 98.2; O2SAT 94
[2025-08-01 08:11] VITALS: O2SAT 99
[2025-08-01] MEDS ORDERED: Z GUARD REMEDY 4 OZ OINT TP PRN (08:30)
[2025-08-01 11:00] VITALS: BP 150/87; TEMP 98.2; O2SAT 95
[2025-08-01 11:18] LABS: LYMPHOCYTES % (MANUAL) 28 % (16-48); MONOCYTES % (MANUAL) 2 % (0-11.0); NEUTROPHILS % (MANUAL) 70 (42-76); PLATELET ESTIMATE DECREASED
[2025-08-01] MEDS: ONDANSETRON HCL/PF 4 MG/2 ML VIAL IVP PRN (12:59)
[2025-08-01] MEDS: Z GUARD REMEDY 4 OZ OINT TP SCH (13:09)
[2025-08-01 16:00] VITALS: BP 128/71; TEMP 98.2; O2SAT 97
[2025-08-01 20:00] VITALS: BP 121/79; TEMP 97.9; O2SAT 98
[2025-08-02 08:00] VITALS: BP 166/98; TEMP 97.5; O2SAT 98
[2025-08-02] MEDS: MODAFINIL 100 MG TABLET PO SCH (09:05)
[2025-08-02 09:10] LABS: PLATELET COUNT (AUTO) 125 K/uL (150-450); RED BLOOD CELL COUNT(AUTO) 4.65 MIL/uL (4.0-5.2); RED CELL DISTRIBUTION WIDTH 17.5 % (11.5-15.0); WHITE BLOOD COUNT (AUTO) 6.3 K/uL (4.3-11.0)
[2025-08-02 09:38] LABS: ASPARTATE AMINOTRANSFERASE 21.0 U/L (15-37); CALCIUM, SERUM 8.2 mg/dL (8.5-10.1); CREATININE 0.7 mg/dL (0.6-1.3); SODIUM SERUM 143.0 mmol/L (136-145); TOTAL PROTEIN, SERUM 6.4 g/dL (6.4-8.2); UREA NITROGEN, BLOOD 13.0 mg/dL (7-18)
[2025-08-02 13:34] LABS: BAND % (MANUAL) 2 % (0.0-5.0); LYMPHOCYTES % (MANUAL) 27 % (16-48); MONOCYTES % (MANUAL) 1 % (0-11.0); MYELOCYTES % 3 % (0-0); NEUTROPHILS % (MANUAL) 67 (42-76); PLATELET ESTIMATE DECREASED
[2025-08-02 16:00] VITALS: BP 128/81; TEMP 97.7; O2SAT 99
[2025-08-02 16:40] VITALS: O2SAT 98
[2025-08-02 16:51] VITALS: O2SAT 99
[2025-08-02] MEDS: CALCIUM CARBONATE 500 MG TAB.CHEW PO PRN (19:34)
[2025-08-02 20:00] VITALS: BP 99/65; TEMP 97.9; O2SAT 96
[2025-08-03] MEDS ORDERED: Modafinil PO (06:15)
[2025-08-03 08:00] VITALS: BP 171/91; TEMP 97.5; O2SAT 98
[2025-08-03 12:50] VITALS: O2SAT 97
[2025-08-03 13:00] VITALS: O2SAT 98; O2SAT 99
[2025-08-03 16:00] VITALS: BP 115/72; TEMP 98.8; O2SAT 98
[2025-08-03 20:00] VITALS: BP 106/65; TEMP 97.7; O2SAT 98
[2025-08-04] VITALS (8 sets, daily range): BP systolic 106–144; BP diastolic 58–96; TEMP 97.5–98.2; O2SAT 95–99
[2025-08-04 09:43] LABS: PLATELET COUNT (AUTO) 136 K/uL (150-450); RED BLOOD CELL COUNT(AUTO) 4.00 MIL/uL (4.0-5.2); RED CELL DISTRIBUTION WIDTH 17.3 % (11.5-15.0); WHITE BLOOD COUNT (AUTO) 6.2 K/uL (4.3-11.0)
[2025-08-04 09:55] LABS: ASPARTATE AMINOTRANSFERASE 22 U/L (15-37); CALCIUM, SERUM 8.1 mg/dL (8.5-10.1); CREATININE 0.6 mg/dL (0.6-1.3); SODIUM SERUM 142 mmol/L (136-145); TOTAL PROTEIN, SERUM 6.0 g/dL (6.4-8.2); UREA NITROGEN, BLOOD 17 mg/dL (7-18)
[2025-08-04 16:31] LABS: PLATELET COUNT (AUTO) 168 K/uL (150-450); RED BLOOD CELL COUNT(AUTO) 4.22 MIL/uL (4.0-5.2); RED CELL DISTRIBUTION WIDTH 17.7 % (11.5-15.0); WHITE BLOOD COUNT (AUTO) 8.4 K/uL (4.3-11.0)
[2025-08-04 16:38] LABS: APPEARANCE,URINE CLEAR (CLEAR); BLOOD, URINE NEGATIVE Ery/uL (NEGATIVE); LEUKOCYTE ESTERASE ,URINE 1+ (NEGATIVE); NITRITE, URINE NEGATIVE (NEGATIVE); UGLUCOSE NEGATIVE (NEGATIVE)
[2025-08-04 16:59] LABS: CALCIUM OXALATE CRYSTALS,UR Few /HPF (None Seen)
[2025-08-04 17:00] LABS: TRIPLE PHOSPHATE CRYSTAL,UR Few /HPF (None Seen)
[2025-08-04 17:01] LABS: ADD URINE CULTURE YES
[2025-08-04 17:04] LABS: LACTIC ACID 3.1 mmol/L (0.4-2.0)
[2025-08-04] MEDS: IV NS 0.9% 1,000 ML IV ONE (17:30)
[2025-08-04] MEDS ORDERED: DOSING PER PHARMACY-CEFEPIME IVPB XX PRN (17:30)
[2025-08-04] MEDS: CEFEPIME 1 GM in IV D5W 50 ML IV SCH (19:08)
[2025-08-04 19:13] LABS: LACTIC ACID REFLEX 1.6 mmol/L (0.4-1.9)
[2025-08-04] MEDS: IV NS 0.9% 1,000 ML IV SCH (22:20)
[2025-08-05] VITALS (7 sets, daily range): BP systolic 108–163; BP diastolic 74–98; TEMP 97.9–98.6; O2SAT 96–99
[2025-08-06] VITALS (9 sets, daily range): BP systolic 102–151; BP diastolic 45–84; TEMP 98.2–99.1; O2SAT 93–100
[2025-08-06 07:38] LABS: PLATELET COUNT (AUTO) 164 K/uL (150-450); RED BLOOD CELL COUNT(AUTO) 3.71 MIL/uL (4.0-5.2); RED CELL DISTRIBUTION WIDTH 17.7 % (11.5-15.0); WHITE BLOOD COUNT (AUTO) 7.1 K/uL (4.3-11.0)
[2025-08-06 08:27] LABS: CALCIUM, SERUM 8.2 mg/dL (8.5-10.1); CREATININE 0.6 mg/dL (0.6-1.3); PHOSPHORUS 3.0 mg/dL (2.5-4.9); SODIUM SERUM 144.0 mmol/L (136-145); UREA NITROGEN, BLOOD 11.0 mg/dL (7-18)
[2025-08-06] MEDS: NITROFURANTOIN/MONOHYDRATE MACROCRYSTALS 100 MG CAPSULE PO SCH (10:53)
[2025-08-06] MEDS: LINEZOLID 600 MG TABLET PO SCH (12:46)
[2025-08-07 08:00] VITALS: BP 148/89; TEMP 99.1; O2SAT 98
[2025-08-07] MEDS ORDERED: IV NS 0.9% 1,000 ML IV PRN (09:29)
[2025-08-07 10:45] LABS: PLATELET COUNT (AUTO) 126 K/uL (150-450); RED BLOOD CELL COUNT(AUTO) 3.52 MIL/uL (4.0-5.2); RED CELL DISTRIBUTION WIDTH 19.3 % (11.5-15.0); WHITE BLOOD COUNT (AUTO) 6.3 K/uL (4.3-11.0)
[2025-08-07 11:28] VITALS: O2SAT 92
[2025-08-07 11:38] VITALS: O2SAT 98
[2025-08-07] MEDS ORDERED: LINE600T13 PO (11:38)
[2025-08-07 14:52] LABS: LYMPHOCYTES % (MANUAL) 27 % (16-48); MYELOCYTES % 1 % (0-0); NEUTROPHILS % (MANUAL) 72 (42-76); PLATELET ESTIMATE DECREASED
== END 2025-08-07 13:18 | disposition short-term general hospital (02) | DRG 640 ==
LOC: ER 18:40 → TELE 21:23 → MED 07-29 18:00 → TELE 08-03 18:11
PROVIDERS: ADMIT Nurse Practitioner Acute Care; ATTEND Internal Medicine
DX: E86.0 Dehydration (principal); G93.41 Metabolic encephalopathy; E44.0 Moderate protein-calorie malnutrition; E87.20 Acidosis, unspecified; G20.A1 Parkinson's disease without dyskinesia, without mention of fluctuations; E88.09 Other disorders of plasma-protein metabolism, not elsewhere classified; B95.2 Enterococcus as the cause of diseases classified elsewhere; B96.89 Other specified bacterial agents as the cause of diseases classified elsewhere; Z79.01 Long term (current) use of anticoagulants; F02.83 Dementia in other diseases classified elsewhere, unspecified severity, with mood disturbance; D64.9 Anemia, unspecified; I10 Essential (primary) hypertension; J45.909 Unspecified asthma, uncomplicated; F32.A Depression, unspecified; K86.1 Other chronic pancreatitis; Z16.21 Resistance to vancomycin; G30.9 Alzheimer's disease, unspecified; R79.89 Other specified abnormal findings of blood chemistry; Z98.890 Other specified postprocedural states; Z90.710 Acquired absence of both cervix and uterus; Z90.49 Acquired absence of other specified parts of digestive tract; Z88.6 Allergy status to analgesic agent; Z88.8 Allergy status to other drugs, medicaments and biological substances; Z91.013 Allergy to seafood; Z79.51 Long term (current) use of inhaled steroids; Z79.83 Long term (current) use of bisphosphonates; Z79.899 Other long term (current) drug therapy; Z88.5 Allergy status to narcotic agent; R62.7 Adult failure to thrive
CPT/HCPCS: 36415; 36600; 70450-TC; 71045-TC; 74018; 76856-TC; 80048-TC; 80053-TC; 80076-TC; 81001; 82140-TC; 82248-TC; 82272-TC; 82803-TC; 83605-TC; 83735-TC; 84100-TC; 84443-TC; 84484-TC; 85025-TC; 85027-TC; 85730-TC; 87040-TC; 87081-TC; 87086-TC; 87186-TC; 92526; 92611; 93307-TC; 94761-TC; 94799-TC; 97110-TC; 97112-TC; 97116-TC; 97530-TC; A4223; A6253; G0378; G0480; J0692; J0696; J2405; J3480; J3490; J7030; J7060